=== PATIENT | male | born 1980 | race Caucasian/White ===

== ENCOUNTER 2017-01-12 00:39 | Inpatient (IN) | payer MEDICAID, OTHER ==
[2017-01-12] VITALS (8 sets, daily range): BP systolic 107–143; BP diastolic 54–78; PULSE 56–98; RESP 16–18; TEMP 98.4–100.5; O2SAT 94–99
[~2017-01-12] VITALS: Ht 182.9 cm; Wt 95.7 kg
[~2017-01-12 00:39] MED LIST: BACT800T5 PO; CEPH500C3 PO; CYCL-36 PO; DICL50 PO
[2017-01-12] MEDS ORDERED: SODIUM CHLOR 0.9% 1000 ML INJ 1,000 ML IV SCH ×2 (00:57→03:04)
--- NOTE | 2017-01-12 01:12 | PD ---
HPI Chief Complaint: Skin Problem Time Seen by Provider: 01:00 Travel History International Travel<30 days: No Contact w/Intl Traveler<30days: No Traveled to known affect area: No History of Present Illness HPI This is a 36-year-old male with history of IV drug abuse presents for evaluation of left arm pain. He reports that 1 week ago he injected Dilaudid in the left antecubital region. He reports that he used a very large needle, 10 -gauge, and he thinks that he missed the vein. Since then he's had pain in the proximal left forearm/distal left humerus region. He feels like it is swollen. Pain is an aching pain that is constant. Denies fevers or chills. He also has noted some pimple lesions in both armpits for the past few weeks which have been tender. He has no other complaints at this time. [facility] Past Medical History Diminished Hearing: No Immunizations Current: Yes Pneumonia: Yes Renal Failure: Yes (ACUTE RENAL FAILURE 2009) Past Surgical History Other Surgery: Yes (LEFT HAND SURGERY) Social History Alcohol Use: Yes (RARE) Tobacco Use: Yes (1/2 PPD) Substance Use: Yes (IV DILAUDID, IV HERION) Allergies-Medications (Allergen,Severity, Reaction): Coded Allergies: No Known Allergies (Unverified , 01/12/17) Reported Meds & Prescriptions Reported Meds & Active Scripts Active Review of Systems Except as stated in HPI: all other systems reviewed are Neg Physical Exam Narrative GENERAL: Well-developed well-nourished male in no acute distress SKIN: Warm and dry. Some papular lesions are noted in both axilla consistent with folliculitis. The left forearm reveals some track schneider with no evidence of erythema, induration, fluctuance. HEAD: Atraumatic. Normocephalic. EYES: Pupils equal and round. No scleral icterus. No injection or drainage. ENT: No nasal bleeding or discharge. Mucous membranes pink and moist. NECK: Trachea midline. No JVD. CARDIOVASCULAR: Regular rate and rhythm. No murmur appreciated. RESPIRATORY: No accessory muscle use. Clear to auscultation. Breath sounds equal bilaterally. GASTROINTESTINAL: Abdomen soft, non-tender, nondistended. Hepatic and splenic margins not palpable. MUSCULOSKELETAL: Skin as noted above. The left arm is tender in the distal humerus/proximal forearm region however the compartments of the arm are very soft and there is no obvious deformity. NEUROLOGICAL: Awake and alert. No obvious cranial nerve deficits. Motor grossly within normal limits. Normal speech. Data Data Last Documented VS Vital Signs Date Time Temp Pulse Resp B/P Pulse Ox O2 Delivery O2 Flow Rate FiO2 01/12/17 01:28 100.5 92 18 143/70 99 Room Air Orders Complete Blood Count With Diff (01/12/17 00:57) Comprehensive Metabolic Panel (01/12/17 00:57) Prothrombin Time / Inr (Pt) (01/12/17 00:57) Act Partial Throm Time (Ptt) (01/12/17 00:57) Lactic Acid Sepsis Protocol (01/12/17 00:57) Blood Culture (01/12/17 00:57) Ct Forearm W Iv Contrast (01/12/17 ) Ct Humerus W Iv Contrast (01/12/17 ) Creatine Kinase (Cpk) (01/12/17 00:57) Sodium Chlor 0.9% 1000 Ml Inj (Ns 1000 M (01/12/17 00:57) Iv Access Insert/Monitor (01/12/17 00:57) Vancomycin Inj (Vancomycin Inj) (01/12/17 01:45) Piperacil-Tazo 4.5 Gm Premix (Zosyn 4.5 (01/12/17 01:45) Iohexol 350 Inj (Omnipaque 350 Inj) (01/12/17 02:14) Ketorolac Inj (Toradol Inj) (01/12/17 03:15) Sodium Chlor 0.9% 1000 Ml Inj (Ns 1000 M (01/12/17 03:04) Labs Laboratory Tests Test 01/12/17 01/12/17 01:20 03:05 Prothrombin Time 10.5 SEC Prothromb Time International 1.0 RATIO Ratio Activated Partial 23.6 SEC Thromboplast Time Sodium Level 135 MEQ/L Potassium Level 4.0 MEQ/L Chloride Level 98 MEQ/L Carbon Dioxide Level 27.7 MEQ/L Anion Gap 9 MEQ/L Blood Urea Nitrogen 16 MG/DL Creatinine 1.06 MG/DL Estimat Glomerular Filtration 80 ML/MIN Rate Random Glucose 101 MG/DL Lactic Acid Level 1.1 mmol/L Calcium Level 8.8 MG/DL Total Bilirubin 0.6 MG/DL Aspartate Amino Transf 42 U/L (AST/SGOT) Alanine Aminotransferase 56 U/L (ALT/SGPT) Alkaline Phosphatase 78 U/L Total Creatine Kinase 126 U/L Total Protein 8.3 GM/DL Albumin 3.3 GM/DL White Blood Count 9.9 TH/MM3 Red Blood Count 4.84 MIL/MM3 Hemoglobin 13.8 GM/DL Hematocrit 39.2 % Mean Corpuscular Volume 81.0 FL Mean Corpuscular Hemoglobin 28.4 PG Mean Corpuscular Hemoglobin 35.1 % Concent Red Cell Distribution Width 14.0 % Platelet Count 237 TH/MM3 Mean Platelet Volume 7.7 FL Neutrophils (%) (Auto) 67.7 % Lymphocytes (%) (Auto) 20.8 % Monocytes (%) (Auto) 8.8 % Eosinophils (%) (Auto) 2.2 % Basophils (%) (Auto) 0.5 % Neutrophils # (Auto) 6.7 TH/MM3 Lymphocytes # (Auto) 2.1 TH/MM3 Monocytes # (Auto) 0.9 TH/MM3 Eosinophils # (Auto) 0.2 TH/MM3 Basophils # (Auto) 0.1 TH/MM3 CBC Comment DIFF FINAL Differential Comment MDM Medical Decision Making Medical Screen Exam Complete: Yes Emergency Medical Condition: Yes Medical Record Reviewed: Yes Differential Diagnosis IV infiltration versus cellulitis versus abscess versus compartment syndrome versus myositis versus osteomyelitis Narrative Course 36-year-old male history of IV drug abuse who has been having pain in his left arm ever since using a 10-gauge needle to inject Dilaudid in the left antecubital region one week ago. Physical examination reveals no evidence of cutaneous cellulitis, compartment syndrome or abscess. Given the history and mechanism of injury, CT of the forearm/humerus with IV contrast has been ordered to assess for deep space infection. Plan is for basic lab work, blood cultures. He'll be given IV fluids. Upon reexamination he was actually felt to be febrile with a temperature of 100.5. Therefore broad-spectrum antibiotics have been administered. CT imaging reveals 3.6 x 1.4 x 1.6 cm abscess in the soft tissue musculature of the antecubital region associated with a thrombophlebitis and probable partially occlusive thrombus with surrounding cellulitis. Therefore the patient will be admitted for IV antibiotic therapy, likely surgery consultation. Diagnosis Primary Impression: Cellulitis and abscess of other specified site Additional Impression: IV drug abuse Admitting Information Admitting Physician Requests: Admit Lane Quinny P. PA Jan 12, 2017 01:12
[2017-01-12] MEDS ORDERED: VANCOMYCIN INJ 1,000 MG in SODIUM CHLOR 0.9% 250 ML INJ 250 ML IV ONE (01:45)
[2017-01-12] MEDS ORDERED: PIPERACIL-TAZO 4.5 GM PREMIX 100 ML IV ONE (01:45)
[2017-01-12] MEDS ORDERED: IOHEXOL 350 MG/ML 10 ML VIAL (for RAD DIAG) IV ONE (02:14)
[2017-01-12 02:26] LABS: ALKALINE PHOSPHATASE 78 U/L (45-117); ALT (GPT) 56 U/L (12-78); ANION GAP 9 MEQ/L (5-15); AST (GOT) 42 U/L (15-37); BICARBONATE 27.7 MEQ/L (21.0-32.0); BLOOD UREA NITROGEN 16 MG/DL (7-18); CHLORIDE 98 MEQ/L (98-107); CREATINE KINASE 126 U/L (39-308); GLOMERULAR FILTRATION RATE 80 ML/MIN (>89); SODIUM (NA) 135 MEQ/L (136-145); TOTAL BILIRUBIN ADULT 0.6 MG/DL (0.2-1.0)
[2017-01-12 02:30] LABS: APTT (PATIENT) 23.6 SEC (24.3-30.1); PROTHROMBIN TIME - PATIENT 10.5 SEC (9.8-11.6)
--- NOTE | 2017-01-12 02:47 | RADRPT ---
EXAM DATE/TIME: 01/12/2017 02:06 [facility] COMPARISON: No previous studies available for comparison. INDICATIONS : Left anterior arm swelling; possible abscess. Patient has a history of IV drug abuse. IV CONTRAST: 70 cc Omnipaque 350 (iohexol) IV ; Cumulative dose for multiple exams. RADIATION DOSE: 19.34 CTDIvol (mGy) ; Combined studies MEDICAL HISTORY : IV drug abuse SURGICAL HISTORY : None. ENCOUNTER: Initial ACUITY: 1 day PAIN SCALE: 7/10 LOCATION: Left arm TECHNIQUE: Volumetric scanning of the forearm was performed. Using automated exposure control and adjustment of the mA and/or kV according to patient size, radiation dose was kept as low as reasonably achievable to obtain optimal diagnostic quality images. DICOM format image data is available electronically fo r review and comparison. FINDINGS: There is an enhancing fluid collection in the soft tissue musculature of the antecubital region measu ring about 3.6 x 1.4 x 1.6 cm characteristic of a small abscess. There is probable adjacent partially occlusive superficial thrombophlebitis. There is some surrounding cellulitis. No bony abnormalities. CONCLUSION: 1. 3.6 x 1.4 x 1.6 cm abscess in the soft tissue musculature of the antecubital region associated wit h a thrombophlebitis and probable partially occlusive thrombus with surrounding cellulitis. Marcin Schofield MD on January 12, 2017 at 2:42 Board Certified Radiologist. This report was verified electronically.
--- NOTE | 2017-01-12 02:50 | RADRPT ---
EXAM DATE/TIME: 01/12/2017 02:06 [facility] COMPARISON: No previous studies available for comparison. INDICATIONS : Anterior arm swelling; possible abscess. Patient has a history of IV drug abuse. IV CONTRAST: 70 cc Omnipaque 350 (iohexol) IV ; Cumulative dose for multiple exams. RADIATION DOSE: 19.34 CTDIvol (mGy) ; Combined studies MEDICAL HISTORY : IV drug abuse SURGICAL HISTORY : None. ENCOUNTER: Initial ACUITY: 1 day PAIN SCALE: 7/10 LOCATION: Left arm TECHNIQUE: Volumetric scanning of the humerus was performed. Using automated exposure control and adjustment of the mA and/or kV according to patient size, radiation dose was kept as low as reasonably achievable to obtain optimal diagnostic quality images. DICOM format image data is available electronically for review and comparison. FINDINGS: There is an enhancing fluid collection in the anterior musculature of the antecubital region predomin antly involving the distal biceps measuring up to 4 x 1.3 x 1.2 cm on these images characteristic of an abscess. There is likely an adjacent partially occlusive thrombophlebitis. There is some surroundi ng cellulitis. No acute bony abnormality. CONCLUSION: 1. Small abscess in the antecubital region predominantly involving the distal biceps muscle with aldo urements given above. There is an adjacent partially occlusive thrombophlebitis and surrounding cellu litis. Marcin Schofield MD on January 12, 2017 at 2:46 Board Certified Radiologist. This report was verified electronically.
[2017-01-12] MEDS ORDERED: KETOROLAC TROMETHAMINE 30 MG/ML (IVP) VIAL IV PUSH ONE (03:15)
[2017-01-12 03:29] LABS: AUTOMATED NEUTROPHIL # 6.7 TH/MM3 (1.8-7.7); BASOPHIL # 0.1 TH/MM3 (0-0.2); BASOPHIL % 0.5 % (0.0-2.0); EOSINOPHIL # 0.2 TH/MM3 (0-0.4); EOSINOPHIL % 2.2 % (0.0-4.0); HEMATOCRIT 39.2 % (39.0-51.0); HEMO FLAGS DIFF FINAL; LYMPH % 20.8 % (9.0-44.0); LYMPHOCYTE # 2.1 TH/MM3 (1.0-4.8); MEAN CORPUSCULAR HEMOGLOBIN 28.4 PG (27.0-34.0); MEAN CORPUSCULAR HGB CONC 35.1 % (32.0-36.0); MONO % 8.8 % (0.0-8.0); NEUT % 67.7 % (16.0-70.0); PLATELET COUNT 237 TH/MM3 (150-450); RED BLOOD COUNT 4.84 MIL/MM3 (4.50-5.90); WHITE BLOOD COUNT 9.9 TH/MM3 (4.0-11.0)
[2017-01-12] MEDS ORDERED: ONDANSETRON HCL 4 MG/2 ML VIAL IVP PRN (04:15)
[2017-01-12] MEDS ORDERED: BISACODYL 10 MG SUPP RECTAL PRN (04:15)
[2017-01-12] MEDS ORDERED: ACETAMINOPHEN 325 MG TAB PO PRN (04:15)
[2017-01-12] MEDS ORDERED: MAGNESIUM HYDROXIDE SUSP 30 ML CUP PO PRN (04:15)
[2017-01-12] MEDS ORDERED: SODIUM CHLORIDE 0.9% FLUSH 10 ML FLUSH IV FLUSH PRN (04:15)
[2017-01-12] MEDS ORDERED: Vancomycin Consult Pharmacy 1 EA OTHER SCH (04:15)
[2017-01-12] MEDS ORDERED: SENNOSIDES 8.6 MG TAB PO PRN (04:15)
[2017-01-12] MEDS ORDERED: LACTULOSE SYRUP 20 GM/30 ML CUP PO PRN (04:15)
[2017-01-12] MEDS: SODIUM CHLOR 0.9% 1000 ML INJ 1,000 ML IV SCH ×2 (04:50→06:22)
[2017-01-12] MEDS ORDERED: VANCOMYCIN INJ 900 MG in SODIUM CHLOR 0.9% 250 ML INJ 250 ML IV SCH (05:00)
--- NOTE | 2017-01-12 05:23 | HHI.HP ---
[facility] No Primary Care Physician Admission Diagnosis left arm abscess, cellulitis Diagnoses: (1) Sepsis Diagnosis: Principal (2) Abscess of left arm Diagnosis: Principal (3) IVDU (intravenous drug user) Diagnosis: Principal (4) Dehydration Diagnosis: Principal (5) Tobacco abuse Diagnosis: Principal Travel History International Travel<30 Days: No Contact w/Intl Traveler <30 Da: No Traveled to Known Affected Are: No History of Present Illness This is a 36-year-old male with PMH of Tobacco Abuse and IVDU w/ Dilaudid and Heroin who presented to the ER w/ complaints of left arm pain for approx 1wk. States he injected into left antecubital site w/ large needle approx 1wk ago, reports worsening pain at site since then. Denies fever or chills. On arrival , BP 138/78, HR 98, O2 sat 98% on RA, Temp 100.5. CBC unremarkable. Chemistry essentially unremarkable except for GFR 80. Lactic Acid 1.1. [address] LUE with small abscess in the antecubital region involving distal biceps muscle 4 x 1.3 x 1.2 cm, partially occlusive thrombophlebitis and surrounding cellulitis also noted. S/p Blood Cultures, Vanc/Zosyn in ER. Review of Systems Except as stated in HPI: all other systems reviewed are Neg ROS: 14 point review of systems otherwise negative. Past Family Social History Past Medical History PMH: Tobacco Abuse and IVDU w/ Dilaudid and Heroin Past Surgical History PAST SURGICAL HISTORY: Left Hand Surgery Allergies: Coded Allergies: No Known Allergies (Unverified , 01/12/17) Family History PAST FAMILY HISTORY: Reviewed. No h/o DM or CAD Social History PAST SOCIAL HISTORY: Occasional alcohol. Smokes 1/2ppd. +IVDU w/ Heroin/ Dilaudid Physical Exam Vital Signs Vital Signs Date Time Temp Pulse Resp B/P Pulse Ox O2 Delivery O2 Flow Rate FiO2 01/12/17 04:50 14 01/12/17 03:54 14 01/12/17 03:53 98.7 78 16 136/63 99 Room Air 8/19/17 01:28 100.5 92 18 143/70 99 Room Air 01/12/17 00:42 99.2 98 18 138/78 98 Physical Exam PE: GENERAL: Young male in no acute distress. HEENT: PERRLA, EOMI. No scleral icterus or conjunctival pallor. No lid lag or facial droop. CARDIOVASCULAR: Regular rate and rhythm. No obvious murmurs to auscultation. No chest tenderness to palpation. RESPIRATORY: No obvious rhonchi or wheezing. Clear to auscultation. Breath sounds equal bilaterally. GASTROINTESTINAL: Abdomen soft, non-tender, nondistended. BS normal. MUSCULOSKELETAL: Extremities without clubbing, cyanosis, or edema. No obvious deformities. LUE +track schneider, no erythema/edema. NEUROLOGICAL: Awake, alert and oriented x4. No focal neurologic deficits. Moving both upper and lower extremities spontaneously. Laboratory Laboratory Tests Test 01/12/17 01/12/17 01:20 03:05 Prothrombin Time 10.5 Prothromb Time International 1.0 Ratio Activated Partial 23.6 Thromboplast Time Sodium Level 135 Potassium Level 4.0 Chloride Level 98 Carbon Dioxide Level 27.7 Anion Gap 9 Blood Urea Nitrogen 16 Creatinine 1.06 Estimat Glomerular Filtration 80 Rate Random Glucose 101 Lactic Acid Level 1.1 Calcium Level 8.8 Total Bilirubin 0.6 Aspartate Amino Transf 42 (AST/SGOT) Alanine Aminotransferase 56 (ALT/SGPT) Alkaline Phosphatase 78 Total Creatine Kinase 126 Total Protein 8.3 Albumin 3.3 White Blood Count 9.9 Red Blood Count 4.84 Hemoglobin 13.8 Hematocrit 39.2 Mean Corpuscular Volume 81.0 Mean Corpuscular Hemoglobin 28.4 Mean Corpuscular Hemoglobin 35.1 Concent Red Cell Distribution Width 14.0 Platelet Count 237 Mean Platelet Volume 7.7 Neutrophils (%) (Auto) 67.7 Lymphocytes (%) (Auto) 20.8 Monocytes (%) (Auto) 8.8 Eosinophils (%) (Auto) 2.2 Basophils (%) (Auto) 0.5 Neutrophils # (Auto) 6.7 Lymphocytes # (Auto) 2.1 Monocytes # (Auto) 0.9 Eosinophils # (Auto) 0.2 Basophils # (Auto) 0.1 CBC Comment DIFF FINAL Differential Comment Date/Time Procedure Status Source Growth 01/12/17 01:30 Aerobic Blood Culture Received Blood Peripheral Pending 01/12/17 01:30 Anaerobic Blood Culture Received Blood Peripheral Pending Result Diagram: 01/12/17 0305 01/12/17 0120 Assessment and Plan Problem List: (1) Sepsis ICD Code: A41.9 Status: Acute (2) Abscess of left arm ICD Code: L02.414 Status: Acute (3) Dehydration ICD Code: E86.0 Status: Acute (4) IVDU (intravenous drug user) ICD Code: F19.90 Status: Acute (5) Tobacco abuse ICD Code: Z72.0 Status: Acute Assessment and Plan A/P: 1. Sepsis: Temp 100.5, HR 92, Source-LUE Abscess. S/p Blood Cultures, IV Vanc /Zosyn in ER. Follow up cultures, continue IV Abx. 2. LUE Abscess: c/o pain in left antecubital region at site of recent IVDU, CT LUE w/ 3.6 x 1.4 x 1.6 abscess soft tissue musculature of antecubital region associated with thrombophlebitis and partially occlusive thrombus with surrounding cellulitis, images reviewed by me. Continue w/ IV Abx as above. Consult Gen Sx as deep tissue abscess involving musculature. 3. Dehydration: GFR 80, BUN/Creatinine normal. IVF for hydration, the labs in a.m. 4. IVDU: w/ Dilaudid/Heroin, ongoing. Ativan prn if needed for withdrawal. 5. Tobacco Abuse: Pt counselled. Ativan/NicoDerm prn if needed. 6. DVT Prophylaxis: Heparin sq 7. Social work for d/c planning as needed. 8. Case discussed w/ ER physician at length. Physician Certification 2 Midnight Certification Type: Admission for Inpatient Services Order for Inpatient Services The services are ordered in accordance with Medicare regulations or non- Medicare payer requirements, as applicable. In the case of services not specified as inpatient-only, they are appropriately provided as inpatient services in accordance with the 2-midnight benchmark. Estimated LOS (days): 2 days is the estimated time the patient will need to remain in the hospital, assuming treatment plan goals are met and no additional complications. Post-Hospital Plan: Not yet determined Arin Best MD Jan 12, 2017 05:22
[2017-01-12] MEDS: CEFEPIME INJ 1,000 MG in SODIUM CHLORIDE 0.9% INJ 100 ML IV SCH ×2 (08:19→21:39)
[2017-01-12] MEDS: MORPHINE SULFATE 4 MG/ML INJ IV PRN ×3 (08:28→18:40)
[2017-01-12] MEDS: SODIUM CHLORIDE 0.9% FLUSH 10 ML FLUSH IV FLUSH SCH ×2 (08:30→21:00)
[2017-01-12] MEDS ORDERED: LIDOCAINE HCL 1% 50 ML VIAL ONE (09:45)
[2017-01-12] MEDS ORDERED: fentaNYL CITRATE 250 MCG/5 ML AMP ONE (09:51)
[2017-01-12] MEDS ORDERED: DO NOT ADM ANY ANTICOAGULANT DRUGS PRN (10:45)
--- NOTE | 2017-01-12 10:53 | HHI.PR ---
cc: Enrique Cleary MD Immediate Post Op Note Procedure Date: Jan 12, 2017 Pre Op Diagnosis: Left arm abscess Post Op Diagnosis: Same Surgeon: Enrique Cleary Damaged Freight Inspector(s): Danisha Cárdenas CFA Procedure: Incision and drainage Left arm abscess Complications: None Specimen(s) removed: Gram stain, C&S to microbiology Estimated blood loss: Minimal Anesthesia: LMA Drains: None IVF (800 ml) Patient to: PACU Patient Condition: Good Date/Time of Procedure: SEE SURGICAL CARE RECORD Enrique Cleary MD Jan 12, 2017 10:53
[2017-01-12] MEDS ORDERED: *morphine SULFATE 8 MG/ML PERIprocedure ONLY ONE (11:15)
[2017-01-12] MEDS: DOCUSATE SODIUM 50 MG/SENNA 8.6 MG TAB PO SCH ×2 (11:55→21:39)
[2017-01-12] MEDS: HEPARIN SODIUM - SQ 10,000 UNITS/ML VIAL SQ SCH ×2 (11:56→21:00)
[2017-01-12] MEDS ORDERED: LACTATED RINGER'S 1000 ML INJ 1,000 ML IV ONE (12:00)
[2017-01-12] MEDS ORDERED: PROPOFOL 200 MG/20 ML AMP IV ONE (12:00)
--- NOTE | 2017-01-12 12:21 | MB ---
cc: DANIEL SILVER M.D. DATE OF CONSULTATION: 01/12/2017. REASON FOR CONSULTATION: Left arm abscess. HISTORY OF PRESENT ILLNESS: The patient is a 36-year-old male with a history of tobacco abuse and IV drug use who presented with complaints of left arm pain for about one week. He injected into the left antecubital site with a large needle about one week ago. The patient was noted to have on CT a small abscess involving the distal biceps muscle 4.0 x 1.3 x 1.2 and a partially occlusive thrombophlebitis and surrounding cellulitis. The patient has had blood cultures and is receiving vancomycin and Zosyn. WBCs are 9.9. Platelets are 237,000. CURRENT MEDICATIONS: Methadone. ALLERGIES: HE HAS NO KNOWN ALLERGIES. PAST SURGICAL HISTORY: He has had left hand surgery in the past. SOCIAL HISTORY: He smokes one-half pack per day. He does admit to using heroin and Dilaudid intravenously. PHYSICAL EXAMINATION: GENERAL: The physical exam reveals a male in no acute distress. VITAL SIGNS: Blood pressure is 113/57, pulse 60, respirations 18, temperature 98.7 and 94% saturation on room air. HEAD, EYES, EARS, NOSE, THROAT: The sclerae are nonicteric. CHEST: Clear to auscultation. CARDIAC: Regular rate and rhythm without a murmur. ABDOMEN: Soft. EXTREMITIES: Normal pulses throughout. There are needle tracks on the left upper arm. There is an area of fluctuance proximal to the antecubital fossa. There is also some thickening of the antecubital vein that is hard and a small pocket of fluctuance just distal to this as well. There are no other masses or lesions noted. ASSESSMENT: Abscess left upper arm extending to the antecubital fossa. PLAN: Incision and drainage with cultures. I have discussed the risks of surgery with the patient including but not limited to bleeding, infection, risk of endocarditis and valve infection with possible as well as a need for reoperation. We discussed attempting to change his lifestyle as well as this will only become worse if he continues to inject his peripheral venous system. He will be taken to the operating room today. MD MYA Morelos/[place] /10:55 AM /12:10 PM
[2017-01-12] MEDS: VANCOMYCIN 1,500 MG/NS 500 ML IV SCH ×2 (18:11)
[2017-01-12] MEDS ORDERED: NICOTINE 21 MG/24 HR PATCH T-DERMAL ONE (19:00)
[2017-01-12] MEDS ORDERED: METH10TA PO (19:39)
[2017-01-12] MEDS: METHADONE HCL 10 MG TAB PO SCH (21:53)
[2017-01-12] MEDS: LORazepam 2 MG/ML VIAL IV PUSH PRN (21:53)
[2017-01-13] VITALS (7 sets, daily range): BP systolic 118–137; BP diastolic 58–76; PULSE 52–100; RESP 17–18; TEMP 97.6–99.7; O2SAT 94–99
[2017-01-13] MEDS: SODIUM CHLOR 0.9% 1000 ML INJ 1,000 ML IV SCH (00:02)
[2017-01-13] MEDS ORDERED: MORPHINE SULFATE 4 MG/ML INJ IV PUSH ONE (04:45)
[2017-01-13 04:58] LABS: AUTOMATED NEUTROPHIL # 4.4 TH/MM3 (1.8-7.7); BASOPHIL # 0.1 TH/MM3 (0-0.2); BASOPHIL % 0.7 % (0.0-2.0); EOSINOPHIL # 0.4 TH/MM3 (0-0.4); EOSINOPHIL % 4.9 % (0.0-4.0); HEMATOCRIT 40.1 % (39.0-51.0); HEMO FLAGS DIFF FINAL; LYMPH % 29.1 % (9.0-44.0); LYMPHOCYTE # 2.3 TH/MM3 (1.0-4.8); MEAN CELL VOLUME 83.3 FL (80.0-100.0); MEAN CORPUSCULAR HEMOGLOBIN 27.5 PG (27.0-34.0); MONO % 10.1 % (0.0-8.0); NEUT % 55.2 % (16.0-70.0); PLATELET COUNT 225 TH/MM3 (150-450); RED BLOOD COUNT 4.81 MIL/MM3 (4.50-5.90); RED CELL DISTRIBUTION WIDTH 14.1 % (11.6-17.2)
[2017-01-13 05:24] LABS: ALKALINE PHOSPHATASE 75 U/L (45-117); ALT (GPT) 45 U/L (12-78); ANION GAP 6 MEQ/L (5-15); AST (GOT) 34 U/L (15-37); BLOOD UREA NITROGEN 14 MG/DL (7-18); CHLORIDE 104 MEQ/L (98-107); GLOMERULAR FILTRATION RATE 108 ML/MIN (>89); POTASSIUM 4.4 MEQ/L (3.5-5.1); SODIUM (NA) 135 MEQ/L (136-145); TOTAL BILIRUBIN ADULT 0.3 MG/DL (0.2-1.0)
[2017-01-13] MEDS: METHADONE HCL 10 MG TAB PO SCH ×5 (05:39→21:40)
[2017-01-13] MEDS: VANCOMYCIN 1,500 MG/NS 500 ML IV SCH ×4 (05:39→18:34)
--- NOTE | 2017-01-13 06:42 | MP ---
cc: ENRIQUE CLEARY M.D. DATE OF SURGERY: 01/12/2017 PROCEDURE Incision and drainage left arm. PREOPERATIVE DIAGNOSIS Left arm abscess. POSTOPERATIVE DIAGNOSIS Left arm abscess. ANESTHESIA LMA. SURGEON Arron Cleary MD ESTIMATED BLOOD LOSS Minimal. FLUIDS: 800 mL Crystalloid COMPLICATIONS: None. DRAINS: None. SPECIMEN: C&S, Gram stain to microbiology. PROCEDURE IN DETAIL The patient was seen in the post anesthesia care area and the left arm marked with the patient indicating the areas where there was fluctuance. These were confirmed after the undersigned marked the arm and initialed it. The patient was taken to the operating room, placed on the operating table in the supine position. After an adequate level of laryngeal mask anesthesia was instituted the left arm was prepped and draped in the field. Time-out was taken confirming the correct patient site and procedure to be performed. Two transverse incisions were made directly over the fluctuant areas. A hemostat was used to dissect down to the areas of fluid. Small amount of cloudy fluid was removed but no purulent material. When this had been completed hemostasis was achieved with electrocautery. The wounds were packed with 1-inch iodoform packing. The wounds tracked down the forearm slightly and up into the upper arm. The wound was then wrapped with Bhavesh. The patient was extubated and taken back to the recovery room in stable condition. He tolerated the procedure well. Sponge, needle and instrument counts were reported be correct. Enrique Cleary MD [facility]/[place] /8:26 PM /6:35 AM
[2017-01-13] MEDS: DOCUSATE SODIUM 50 MG/SENNA 8.6 MG TAB PO SCH ×2 (07:55→20:38)
[2017-01-13] MEDS: CEFEPIME INJ 1,000 MG in SODIUM CHLORIDE 0.9% INJ 100 ML IV SCH ×2 (07:56→20:41)
[2017-01-13] MEDS: NICOTINE 21 MG/24 HR PATCH T-DERMAL SCH (07:56)
[2017-01-13] MEDS: SODIUM CHLORIDE 0.9% FLUSH 10 ML FLUSH IV FLUSH SCH ×2 (07:56→20:47)
[2017-01-13] MEDS: HEPARIN SODIUM - SQ 10,000 UNITS/ML VIAL SQ SCH ×2 (07:57→20:39)
[2017-01-13] MEDS: REMOVE OLD PATCH T-DERMAL SCH (07:59)
[2017-01-13] MEDS: MORPHINE SULFATE 4 MG/ML INJ IV PRN ×3 (11:45→20:41)
--- NOTE | 2017-01-13 14:39 | HHI.PR ---
Subjective Subjective Notes DAILY PROGRESS NOTE FOR SURGICAL ATTENDING, DR. JANIS CROWLEY Patient doing well Appears comfortable Objective Vitals/I&O Vital Signs Date Time Temp Pulse Resp B/P (MAP) Pulse Ox O2 Delivery O2 Flow Rate FiO2 01/13/17 12:00 99.7 93 18 118/58 (78) 96 01/12/17 20:12 21 01/12/17 11:15 Room Air 01/12/17 11:00 2 Labs Laboratory Tests Test 01/13/17 04:16 White Blood Count 8.0 Red Blood Count 4.81 Hemoglobin 13.2 Hematocrit 40.1 Mean Corpuscular Volume 83.3 Mean Corpuscular Hemoglobin 27.5 Mean Corpuscular Hemoglobin Concent 33.0 Red Cell Distribution Width 14.1 Platelet Count 225 Mean Platelet Volume 7.6 Neutrophils (%) (Auto) 55.2 Lymphocytes (%) (Auto) 29.1 Monocytes (%) (Auto) 10.1 Eosinophils (%) (Auto) 4.9 Basophils (%) (Auto) 0.7 Neutrophils # (Auto) 4.4 Lymphocytes # (Auto) 2.3 Monocytes # (Auto) 0.8 Eosinophils # (Auto) 0.4 Basophils # (Auto) 0.1 CBC Comment DIFF FINAL Differential Comment Blood Urea Nitrogen 14 Creatinine 0.82 Random Glucose 105 Total Protein 6.6 Albumin 2.4 Calcium Level 8.2 Alkaline Phosphatase 75 Aspartate Amino Transf (AST/SGOT) 34 Alanine Aminotransferase (ALT/SGPT) 45 Total Bilirubin 0.3 Sodium Level 135 Potassium Level 4.4 Chloride Level 104 Carbon Dioxide Level 25.0 Anion Gap 6 Estimat Glomerular Filtration Rate 108 Date/Time Source Procedure Growth Status 01/12/17 01:30 Blood Peripheral Aerobic Blood Culture - Preliminary NO GROWTH IN 1 DAY Resulted 01/12/17 01:30 Blood Peripheral Anaerobic Blood Culture - Preliminary NO GROWTH IN 1 DAY Resulted 01/12/17 10:33 Abscess Arm Fungal Smear Pending Received 01/12/17 10:33 Abscess Arm Fungal Culture Pending Received Radiology Last Impressions Upper Extremity CT 01/12/17 0000 Signed Impressions: Service Date/Time: Saturday, January 12, 2017 02:06 - CONCLUSION: 1. Small abscess in the antecubital region predominantly involving the distal biceps muscle with measurements given above. There is an adjacent partially occlusive thrombophlebitis and surrounding cellulitis. Janis Schofield MD Extremities: Perfused, Other (patient arm bandaged mild edema) A/P Problem List: (1) Status post incision and drainage ICD Codes: Z98.890 - Other specified postprocedural states Status: Acute Permanent Comment: Drainage left antecubital abscess by Dr. Cleary Last Edited By: Janis Crowley on Jan 13, 2017 14:38 (2) Cellulitis and abscess of other specified site ICD Codes: L03.818 - Cellulitis of other sites; L02.818 - Cutaneous abscess of other sites Status: Acute (3) IV drug abuse ICD Codes: F19.10 - Other psychoactive substance abuse, uncomplicated Status: Acute (4) Dehydration ICD Codes: E86.0 - Dehydration Status: Acute (5) Sepsis ICD Codes: A41.9 - Sepsis, unspecified organism Status: Acute (6) Abscess of left arm ICD Codes: L02.414 - Cutaneous abscess of left upper limb Status: Acute (7) IVDU (intravenous drug user) ICD Codes: F19.90 - Other psychoactive substance use, unspecified, uncomplicated Status: Acute (8) Tobacco abuse ICD Codes: Z72.0 - Tobacco use Status: Acute Janis Crowley MD Jan 13, 2017 14:39
[2017-01-13] MEDS ORDERED: POLYETHYLENE GLYCOL 17 GM PKG PO PRN (15:15)
--- NOTE | 2017-01-13 15:20 | HHI.PR ---
Objective Vital Signs Date Time Temp Pulse Resp B/P (MAP) Pulse Ox O2 Delivery O2 Flow Rate FiO2 01/13/17 12:00 99.7 93 18 118/58 (78) 96 01/13/17 08:00 99.3 100 18 118/58 (78) 96 01/13/17 04:23 52 01/13/17 04:00 99.4 76 18 135/76 (95) 98 01/12/17 20:12 21 01/12/17 20:00 98.6 64 18 126/64 (84) 97 01/12/17 16:00 98.5 60 17 107/57 (74) 96 I/O 01/12/17 01/12/17 01/12/17 01/13/17 01/13/17 01/13/17 07:00 15:00 23:00 07:00 15:00 23:00 Intake Total 1095 ml 420 ml 1860 ml Output Total 10 ml 600 ml Balance 1085 ml 420 ml 1260 ml Intake Oral 420 ml 660 ml IV Total 295 ml 1200 ml Other 800 ml Output Urine Total 600 ml Estimated Blood Loss 10 ml # Voids 0 5 Result Diagram: 01/13/17 0416 01/13/17 0416 A/P Problem List: (1) Sepsis ICD Code: A41.9 - Sepsis, unspecified organism Status: Acute (2) Abscess of left arm ICD Code: L02.414 - Cutaneous abscess of left upper limb Status: Acute (3) Cellulitis and abscess of other specified site ICD Code: L03.818 - Cellulitis of other sites; L02.818 - Cutaneous abscess of other sites Status: Acute (4) IV drug abuse ICD Code: F19.10 - Other psychoactive substance abuse, uncomplicated Status: Acute (5) Dehydration ICD Code: E86.0 - Dehydration Status: Acute (6) Tobacco abuse ICD Code: Z72.0 - Tobacco use Status: Acute (7) Status post incision and drainage ICD Code: Z98.890 - Other specified postprocedural states Status: Acute Permanent Comment: Drainage left antecubital abscess by Dr. Cleary Last Edited By: Marcin Crowley on Jan 13, 2017 14:38 (8) IVDU (intravenous drug user) ICD Code: F19.90 - Other psychoactive substance use, unspecified, uncomplicated Status: Acute Assessment and Plan Assessment and Plan Status post I&D left arm. Sepsis is improved. The shunt is trying to negotiate for an increase in his pain medications. I informed him that at discharge she will discharged on his regular methadone which could be augmented with NSAIDs or Tylenol, but given his history and predisposition for IV opioid abuse he will not be discharged with short acting narcotics from me. Sepsis Resolved Left upper extremity abscess History of IV drug abuse Surgery following Status post I&D IV vancomycin and Zosyn Follow cultures Patient counseled to quit IV drug abuse Dehydration Resolved Stop IV fluids Nicotine dependence Patient has been counseled to quit Continue NicoDerm and as needed DVT prophylaxis Heparin Discharge planning Possible discharge in 1-2 days. Patient will need completion of any further I&D , if needed, prior to discharge. Danielito Ornelas MD Jan 13, 2017 15:20
[2017-01-13] MEDS ORDERED: MORPHINE SULFATE 4 MG/ML INJ IV PRN (15:30)
[2017-01-13] MEDS: NAPROXEN 500 MG TAB PO SCH (20:37)
[2017-01-13] MEDS: DOCUSATE SODIUM 100 MG CAP PO SCH (20:38)
[2017-01-13] MEDS: LORazepam 2 MG/ML VIAL IV PUSH PRN (21:48)
[2017-01-13] MEDS ORDERED: TEMAZEPAM 7.5 MG CAP PO ONE (22:45)
[2017-01-14] MEDS: MORPHINE SULFATE 4 MG/ML INJ IV PRN ×2 (00:43→05:03)
[2017-01-14 01:03] VITALS: BP 119/58; PULSE 80; RESP 17; TEMP 98.2; O2SAT 99
[2017-01-14 04:30] VITALS: BP 132/71; PULSE 76; RESP 17; TEMP 97.6; O2SAT 99
[2017-01-14] MEDS: METHADONE HCL 10 MG TAB PO SCH ×5 (05:02→21:11)
[2017-01-14] MEDS ORDERED: PHARMACY ORDERED LAB ONE (05:45)
[2017-01-14] MEDS: VANCOMYCIN 1,500 MG/NS 500 ML IV SCH ×6 (06:53→22:41)
[2017-01-14 07:16] LABS: AUTOMATED NEUTROPHIL # 5.9 TH/MM3 (1.8-7.7); BASOPHIL % 0.3 % (0.0-2.0); EOSINOPHIL # 0.2 TH/MM3 (0-0.4); EOSINOPHIL % 2.5 % (0.0-4.0); HEMATOCRIT 37.3 % (39.0-51.0); HEMO FLAGS DIFF FINAL; LYMPH % 24.3 % (9.0-44.0); LYMPHOCYTE # 2.3 TH/MM3 (1.0-4.8); MEAN CELL VOLUME 81.9 FL (80.0-100.0); MEAN CORPUSCULAR HEMOGLOBIN 27.7 PG (27.0-34.0); MEAN CORPUSCULAR HGB CONC 33.8 % (32.0-36.0); MONO % 11.1 % (0.0-8.0); NEUT % 61.8 % (16.0-70.0); PLATELET COUNT 253 TH/MM3 (150-450); RED BLOOD COUNT 4.55 MIL/MM3 (4.50-5.90); RED CELL DISTRIBUTION WIDTH 13.7 % (11.6-17.2); WHITE BLOOD COUNT 9.5 TH/MM3 (4.0-11.0)
[2017-01-14 07:31] LABS: ANION GAP 7 MEQ/L (5-15); AST (GOT) 35 U/L (15-37); BICARBONATE 30.1 MEQ/L (21.0-32.0); BLOOD UREA NITROGEN 13 MG/DL (7-18); CHLORIDE 102 MEQ/L (98-107); GLOMERULAR FILTRATION RATE 98 ML/MIN (>89); POTASSIUM 3.7 MEQ/L (3.5-5.1); SODIUM (NA) 139 MEQ/L (136-145)
[2017-01-14 07:40] LABS: ALKALINE PHOSPHATASE 66 U/L (45-117); ALT (GPT) 51 U/L (12-78); TOTAL BILIRUBIN ADULT 0.5 MG/DL (0.2-1.0)
[2017-01-14 09:01] VITALS: BP 139/63; PULSE 91; RESP 20; TEMP 98.4; O2SAT 96
[2017-01-14] MEDS: NAPROXEN 500 MG TAB PO SCH ×2 (09:54→21:12)
[2017-01-14] MEDS: SODIUM CHLORIDE 0.9% FLUSH 10 ML FLUSH IV FLUSH SCH ×2 (09:55→21:10)
[2017-01-14] MEDS: NICOTINE 21 MG/24 HR PATCH T-DERMAL SCH (09:55)
[2017-01-14] MEDS: REMOVE OLD PATCH T-DERMAL SCH (09:55)
[2017-01-14] MEDS: HEPARIN SODIUM - SQ 10,000 UNITS/ML VIAL SQ SCH ×2 (09:55→21:00)
[2017-01-14] MEDS: CEFEPIME INJ 1,000 MG in SODIUM CHLORIDE 0.9% INJ 100 ML IV SCH ×2 (09:55→21:10)
[2017-01-14] MEDS: DOCUSATE SODIUM 100 MG CAP PO SCH ×2 (09:56→21:10)
[2017-01-14] MEDS: DOCUSATE SODIUM 50 MG/SENNA 8.6 MG TAB PO SCH ×2 (09:56→21:10)
[2017-01-14 13:08] VITALS: BP 126/72; PULSE 91; RESP 20; TEMP 98.3; O2SAT 94
--- NOTE | 2017-01-14 14:05 | HHI.PR ---
Subjective Subjective Notes Upon arrival to the room KAYDEN Olmedo and Nurse Insurance Checker David at bedside--- discussion with patient about pain medications Hugo upset about not being able to receive IV morphine Dr. Ornelas came to room and discussed pain medication regimen Patient agrees to have dressing changed ---I offered to come back in a little while after PO pain medications given but he insists to do it at this time Objective Vitals/I&O Vital Signs Date Time Temp Pulse Resp B/P (MAP) Pulse Ox O2 Delivery O2 Flow Rate FiO2 01/14/17 13:08 98.3 91 20 126/72 (90) 94 01/12/17 20:12 21 01/12/17 11:15 Room Air 01/12/17 11:00 2 Labs Laboratory Tests Test 01/14/17 06:50 White Blood Count 9.5 Red Blood Count 4.55 Hemoglobin 12.6 Hematocrit 37.3 Mean Corpuscular Volume 81.9 Mean Corpuscular Hemoglobin 27.7 Mean Corpuscular Hemoglobin Concent 33.8 Red Cell Distribution Width 13.7 Platelet Count 253 Mean Platelet Volume 7.8 Neutrophils (%) (Auto) 61.8 Lymphocytes (%) (Auto) 24.3 Monocytes (%) (Auto) 11.1 Eosinophils (%) (Auto) 2.5 Basophils (%) (Auto) 0.3 Neutrophils # (Auto) 5.9 Lymphocytes # (Auto) 2.3 Monocytes # (Auto) 1.1 Eosinophils # (Auto) 0.2 Basophils # (Auto) 0.0 CBC Comment DIFF FINAL Differential Comment Blood Urea Nitrogen 13 Creatinine 0.89 Random Glucose 104 Total Protein 7.2 Albumin 2.9 Calcium Level 9.0 Alkaline Phosphatase 66 Aspartate Amino Transf (AST/SGOT) 35 Alanine Aminotransferase (ALT/SGPT) 51 Total Bilirubin 0.5 Sodium Level 139 Potassium Level 3.7 Chloride Level 102 Carbon Dioxide Level 30.1 Anion Gap 7 Estimat Glomerular Filtration Rate 98 Vancomycin Level Trough 1.3 Date/Time Source Procedure Growth Status 01/12/17 01:30 Blood Peripheral Aerobic Blood Culture - Preliminary NO GROWTH IN 2 DAYS Resulted 01/12/17 01:30 Blood Peripheral Anaerobic Blood Culture - Preliminary NO GROWTH IN 2 DAYS Resulted 01/12/17 10:33 Abscess Arm Fungal Smear Pending Received 01/12/17 10:33 Abscess Arm Fungal Culture Pending Received Radiology Last Impressions Upper Extremity CT 01/12/17 0000 Signed Impressions: Service Date/Time: Thursday, January 12, 2017 02:06 - CONCLUSION: 1. Small abscess in the antecubital region predominantly involving the distal biceps muscle with measurements given above. There is an adjacent partially occlusive thrombophlebitis and surrounding cellulitis. Marcin Schofield MD Cardiovascular: Regular Lungs: Clear Abdomen: Non-distended, Non-tender Extremities: Other (see below ) Narrative Exam LEFT arm ----two abscess cavities---one superior and one inferior to AC---- outer dressing removed and packing removed from both cavities--- moderate amount of purulent drainage---re---packed with 1/4 in iodoform packing; ABD cover and secured with gauze wrap A/P Problem List: (1) Status post incision and drainage ICD Codes: Z98.890 - Other specified postprocedural states Status: Acute Permanent Comment: Drainage left antecubital abscess by Dr. Cleary Last Edited By: Marcin Crowley on Jan 13, 2017 14:38 (2) Cellulitis and abscess of other specified site ICD Codes: L03.818 - Cellulitis of other sites; L02.818 - Cutaneous abscess of other sites Status: Acute (3) IV drug abuse ICD Codes: F19.10 - Other psychoactive substance abuse, uncomplicated Status: Acute (4) Dehydration ICD Codes: E86.0 - Dehydration Status: Acute (5) Sepsis ICD Codes: A41.9 - Sepsis, unspecified organism Status: Acute (6) Abscess of left arm ICD Codes: L02.414 - Cutaneous abscess of left upper limb Status: Acute (7) IVDU (intravenous drug user) ICD Codes: F19.90 - Other psychoactive substance use, unspecified, uncomplicated Status: Acute (8) Tobacco abuse ICD Codes: Z72.0 - Tobacco use Status: Acute Assessment and Plan 36 year old male IVDA with LEFT forearm abscess -Dressing change complete---I will remove packing tomorrow and evaluation dressing -Okay to change outer dressing but leave packing in place -Pain control -I have requested the patient apologize to KAYDEN Olmedo as she is here to help him -I also discussed with Nurse Insurance Checker David Attending Note - Dr. Cleray wound with minimal drainage on bandage. The exam, history, and the medical decision-making described in the above note were completed with the assistance of the mid-level provider. I reviewed and agree with the findings presented. I attest that I had a [id number] encounter with the patient on the same day, and personally performed and documented my assessment and findings in the medical record. Jazmine Godwin Jan 14, 2017 14:05 Enrique Cleary MD Jan 28, 2017 17:22
[2017-01-14 16:35] VITALS: BP 119/59; PULSE 76; RESP 20; TEMP 98.1; O2SAT 95
[2017-01-14 20:00] VITALS: BP 121/56; PULSE 81; RESP 18; TEMP 98.4; O2SAT 94
[2017-01-15] VITALS: BP 123/58; PULSE 78; RESP 18; TEMP 98.6; O2SAT 74
[2017-01-15] MEDS: SODIUM CHLORIDE 0.9% FLUSH 10 ML FLUSH IV FLUSH SCH ×3 (01:24→20:30)
[2017-01-15 04:00] VITALS: BP 158/69; PULSE 83; RESP 20; TEMP 98.5; O2SAT 94
[2017-01-15] MEDS: VANCOMYCIN 1,500 MG/NS 500 ML IV SCH ×4 (05:51→14:09)
[2017-01-15 06:37] LABS: VANCOMYCIN TROUGH 15.7 MCG/ML (5.0-10.0)
[2017-01-15] MEDS: METHADONE HCL 10 MG TAB PO SCH ×5 (06:44→20:14)
[2017-01-15] MEDS ORDERED: PHARMACY ORDERED LAB ONE (06:45)
--- NOTE | 2017-01-15 07:59 | HHI.PR ---
Subjective Remarks This note is intended for documentation of a visit which occurred on 01-14-17 and is written on 01-15-17. Patient reports poor pain control. He is requesting narcotic dosing beyond the pain gradient which would be expected for abscess/cellulitis. Wounds are healing well. Objective Vital Signs Date Time Temp Pulse Resp B/P (MAP) Pulse Ox O2 Delivery O2 Flow Rate FiO2 01/15/17 04:00 98.5 83 20 158/69 (98) 94 01/15/17 00:00 98.6 78 18 123/58 (79) 74 01/14/17 20:00 98.4 81 18 121/56 (77) 94 01/14/17 16:35 98.1 76 20 119/59 (79) 95 01/14/17 13:08 98.3 91 20 126/72 (90) 94 01/14/17 09:01 98.4 91 20 139/63 (88) 96 I/O 01/14/17 01/14/17 01/14/17 01/15/17 01/15/17 01/15/17 06:59 14:59 22:59 06:59 14:59 22:59 Intake Total 600 ml 200 ml 236 ml Balance 600 ml 200 ml 236 ml Intake Oral 600 ml 236 ml IV Total 200 ml # Voids 6 # Bowel Movements 1 Result Diagram: 01/14/17 0650 01/15/17 0600 Objective Remarks GENERAL: NAD, A&Ox3 HEAD: Normocephalic. NECK: Supple, trachea midline. No lymphadenopathy. EYES: No scleral icterus. No injection or drainage. CARDIOVASCULAR: Regular rate and rhythm without murmurs, gallops, or rubs. RESPIRATORY: Breath sounds equal bilaterally. No accessory muscle use. GASTROINTESTINAL: Abdomen soft, non-tender, nondistended. MUSCULOSKELETAL: No cyanosis, or edema. SKIN: Warm and dry. Left forearm has a 2 cm laceration from I&D approximately, his left arm has a 4 cm laceration with a 1 cm deep laceration distally from I& D. NEURO: No focal neurological deficitis. A/P Problem List: (1) Sepsis ICD Code: A41.9 - Sepsis, unspecified organism Status: Acute (2) Abscess of left arm ICD Code: L02.414 - Cutaneous abscess of left upper limb Status: Acute (3) Cellulitis and abscess of other specified site ICD Code: L03.818 - Cellulitis of other sites; L02.818 - Cutaneous abscess of other sites Status: Acute (4) IV drug abuse ICD Code: F19.10 - Other psychoactive substance abuse, uncomplicated Status: Acute (5) Dehydration ICD Code: E86.0 - Dehydration Status: Acute (6) Tobacco abuse ICD Code: Z72.0 - Tobacco use Status: Acute (7) Status post incision and drainage ICD Code: Z98.890 - Other specified postprocedural states Status: Acute Permanent Comment: Drainage left antecubital abscess by Dr. Cleary Last Edited By: Marcin Crowley on Jan 13, 2017 14:38 (8) IVDU (intravenous drug user) ICD Code: F19.90 - Other psychoactive substance use, unspecified, uncomplicated Status: Acute Assessment and Plan Assessment and Plan Status post I&D left arm. Sepsis is improved. The shunt is trying to negotiate for an increase in his pain medications. Narcotics adjusted. Morphine sulfate discontinued and oxycodone 10 mg provided for higher pain scale. Sepsis Resolved Left upper extremity abscess History of IV drug abuse Surgery following Status post I&D IV vancomycin and Zosyn Follow cultures Patient counseled to quit IV drug abuse Dehydration Resolved Stop IV fluids Nicotine dependence Patient has been counseled to quit Continue NicoDerm and as needed DVT prophylaxis Heparin Discharge planning Possible discharge in 1-2 days. Patient will need completion of any further I&D , if needed, prior to discharge. Danielito Ornelas MD Jan 15, 2017 07:59
[2017-01-15 08:00] VITALS: BP 131/74; PULSE 71; RESP 16; TEMP 99; O2SAT 94
[2017-01-15] MEDS: NAPROXEN 500 MG TAB PO SCH ×2 (09:29→20:30)
[2017-01-15] MEDS: CEFEPIME INJ 1,000 MG in SODIUM CHLORIDE 0.9% INJ 100 ML IV SCH ×2 (09:29→20:30)
[2017-01-15] MEDS: REMOVE OLD PATCH T-DERMAL SCH (09:30)
[2017-01-15] MEDS: DOCUSATE SODIUM 50 MG/SENNA 8.6 MG TAB PO SCH ×2 (09:30→20:30)
[2017-01-15] MEDS: NICOTINE 21 MG/24 HR PATCH T-DERMAL SCH (09:30)
[2017-01-15] MEDS: DOCUSATE SODIUM 100 MG CAP PO SCH ×2 (09:30→20:30)
[2017-01-15] MEDS: HEPARIN SODIUM - SQ 10,000 UNITS/ML VIAL SQ SCH ×2 (09:31→20:30)
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
--- NOTE | 2017-01-15 11:27 | HHI.PR ---
Subjective Subjective Notes Resting in bed No issues overnight Pain controlled Objective Vitals/I&O Vital Signs Date Time Temp Pulse Resp B/P (MAP) Pulse Ox O2 Delivery O2 Flow Rate FiO2 01/15/17 08:00 99.0 71 16 131/74 (93) 94 01/12/17 20:12 21 01/12/17 11:15 Room Air 01/12/17 11:00 2 Labs Laboratory Tests Test 01/15/17 06:00 Creatinine 0.86 Estimat Glomerular Filtration Rate 102 Vancomycin Level Trough 15.7 Date/Time Source Procedure Growth Status 01/12/17 01:30 Blood Peripheral Aerobic Blood Culture - Preliminary NO GROWTH IN 3 DAYS Resulted 01/12/17 01:30 Blood Peripheral Anaerobic Blood Culture - Preliminary NO GROWTH IN 3 DAYS Resulted 01/12/17 10:33 Abscess Arm Fungal Smear - Final NO FUNGAL ELEMENTS SEEN. Resulted 01/12/17 10:33 Abscess Arm Fungal Culture Pending Resulted Radiology Last Impressions Upper Extremity CT 01/12/17 0000 Signed Impressions: Service Date/Time: Saturday, January 12, 2017 02:06 - CONCLUSION: 1. Small abscess in the antecubital region predominantly involving the distal biceps muscle with measurements given above. There is an adjacent partially occlusive thrombophlebitis and surrounding cellulitis. Marcin Schofield MD Cardiovascular: Regular Lungs: Clear Abdomen: Non-distended, Non-tender Extremities: Other (see below) Narrative Exam LEFT arm ----two abscess cavities---one superior and one inferior to AC---- outer dressing removed and packing removed from both cavities--- minimal amount of purulent drainage---placed gauze and wrapped with cling wrap A/P Problem List: (1) Status post incision and drainage ICD Codes: Z98.890 - Other specified postprocedural states Status: Acute Permanent Comment: Drainage left antecubital abscess by Dr. Cleary Last Edited By: Marcin Crowley on Jan 13, 2017 14:38 (2) Cellulitis and abscess of other specified site ICD Codes: L03.818 - Cellulitis of other sites; L02.818 - Cutaneous abscess of other sites Status: Acute (3) IV drug abuse ICD Codes: F19.10 - Other psychoactive substance abuse, uncomplicated Status: Acute (4) Dehydration ICD Codes: E86.0 - Dehydration Status: Acute (5) Sepsis ICD Codes: A41.9 - Sepsis, unspecified organism Status: Acute (6) Abscess of left arm ICD Codes: L02.414 - Cutaneous abscess of left upper limb Status: Acute (7) IVDU (intravenous drug user) ICD Codes: F19.90 - Other psychoactive substance use, unspecified, uncomplicated Status: Acute (8) Tobacco abuse ICD Codes: Z72.0 - Tobacco use Status: Acute Assessment and Plan 36 year old male IVDA with LEFT forearm abscess -Dressing change complete---packing removed -Okay to shower -Pain control -IV antibiotics -Discussed with Nurse Coat Repair Inspector David Attending Note - Dr. Cleary Wound is clean; no purulence Home in next day or so The exam, history, and the medical decision-making described in the above note were completed with the assistance of the mid-level provider. I reviewed and agree with the findings presented. I attest that I had a [id number] encounter with the patient on the same day, and personally performed and documented my assessment and findings in the medical record. Jazmine Godwin Jan 15, 2017 11:27 Enrique Cleary MD Jan 28, 2017 17:24
[2017-01-15 12:00] VITALS: BP 148/65; PULSE 82; RESP 16; TEMP 97.9; O2SAT 95
[2017-01-15 16:00] VITALS: BP 122/72; PULSE 61; RESP 16; TEMP 97.4; O2SAT 95
[2017-01-15 20:59] VITALS: BP 131/70; PULSE 63; RESP 18; TEMP 98; O2SAT 96
[2017-01-16 00:27] VITALS: BP 137/82; PULSE 88; RESP 16; TEMP 98.5; O2SAT 98
[2017-01-16] MEDS: VANCOMYCIN 1,500 MG/NS 500 ML IV SCH ×6 (00:45→13:14)
[2017-01-16] MEDS: LORazepam 2 MG/ML VIAL IV PUSH PRN (00:46)
[2017-01-16] MEDS: METHADONE HCL 10 MG TAB PO SCH ×5 (06:00→21:54)
[2017-01-16 08:00] VITALS: BP 128/60; PULSE 61; RESP 16; TEMP 97.5; O2SAT 96
[2017-01-16] MEDS: CEFEPIME INJ 1,000 MG in SODIUM CHLORIDE 0.9% INJ 100 ML IV SCH (08:28)
[2017-01-16] MEDS: NICOTINE 21 MG/24 HR PATCH T-DERMAL SCH (08:28)
[2017-01-16] MEDS: NAPROXEN 500 MG TAB PO SCH ×2 (08:29→21:54)
[2017-01-16] MEDS: DOCUSATE SODIUM 100 MG CAP PO SCH ×2 (08:29→21:54)
[2017-01-16] MEDS: HEPARIN SODIUM - SQ 10,000 UNITS/ML VIAL SQ SCH ×2 (08:30→21:00)
[2017-01-16] MEDS: SODIUM CHLORIDE 0.9% FLUSH 10 ML FLUSH IV FLUSH SCH ×2 (08:30→21:54)
[2017-01-16] MEDS: REMOVE OLD PATCH T-DERMAL SCH (08:30)
[2017-01-16] MEDS: DOCUSATE SODIUM 50 MG/SENNA 8.6 MG TAB PO SCH (08:30)
--- NOTE | 2017-01-16 10:29 | HHI.PR ---
Subjective Remarks Cultures are remaining negative thus far. Left arm is improving through time. No new complaints from the patient. Objective Vital Signs Date Time Temp Pulse Resp B/P (MAP) Pulse Ox O2 Delivery O2 Flow Rate FiO2 01/16/17 08:00 97.5 61 16 128/60 (82) 96 01/16/17 00:27 98.5 88 16 137/82 (100) 98 01/15/17 20:59 98.0 63 18 131/70 (90) 96 01/15/17 16:00 97.4 61 16 122/72 (89) 95 01/15/17 12:00 97.9 82 16 148/65 (92) 95 I/O 01/15/17 01/15/17 01/15/17 01/16/17 01/16/17 01/16/17 06:59 14:59 22:59 06:59 14:59 22:59 Intake Total 1260 ml 500 ml Balance 1260 ml 500 ml Intake Oral 960 ml IV Total 300 ml 500 ml # Voids 4 2 # Bowel Movements 1 0 Result Diagram: 01/14/17 0650 01/15/17 0600 Objective Remarks GENERAL: NAD, A&Ox3 HEAD: Normocephalic. NECK: Supple, trachea midline. No lymphadenopathy. EYES: No scleral icterus. No injection or drainage. CARDIOVASCULAR: Regular rate and rhythm without murmurs, gallops, or rubs. RESPIRATORY: Breath sounds equal bilaterally. No accessory muscle use. GASTROINTESTINAL: Abdomen soft, non-tender, nondistended. MUSCULOSKELETAL: No cyanosis, or edema. SKIN: Warm and dry. Left forearm has a 2 cm laceration from I&D approximately, his left arm has a 4 cm laceration with a 1 cm deep laceration distally from I& D. NEURO: No focal neurological deficitis. A/P Problem List: (1) Sepsis ICD Code: A41.9 - Sepsis, unspecified organism Status: Acute (2) Abscess of left arm ICD Code: L02.414 - Cutaneous abscess of left upper limb Status: Acute (3) Cellulitis and abscess of other specified site ICD Code: L03.818 - Cellulitis of other sites; L02.818 - Cutaneous abscess of other sites Status: Acute (4) IV drug abuse ICD Code: F19.10 - Other psychoactive substance abuse, uncomplicated Status: Acute (5) Dehydration ICD Code: E86.0 - Dehydration Status: Acute (6) Tobacco abuse ICD Code: Z72.0 - Tobacco use Status: Acute (7) Status post incision and drainage ICD Code: Z98.890 - Other specified postprocedural states Status: Acute Permanent Comment: Drainage left antecubital abscess by Dr. Cleary Last Edited By: Marcin Crowley on Jan 13, 2017 14:38 (8) IVDU (intravenous drug user) ICD Code: F19.90 - Other psychoactive substance use, unspecified, uncomplicated Status: Acute Assessment and Plan Assessment and Plan Status post I&D left arm. Sepsis is improved. The shunt is trying to negotiate for an increase in his pain medications. Continue pain treatments. Cultures negative thus far. Follow cultures. Sepsis Resolved Left upper extremity abscess History of IV drug abuse Surgery following Status post I&D IV vancomycin and Zosyn Follow cultures Patient counseled to quit IV drug abuse Dehydration Resolved Stop IV fluids Nicotine dependence Patient has been counseled to quit Continue NicoDerm and as needed DVT prophylaxis Heparin Discharge planning Possible discharge in 1-2 days. Patient will need completion of any further I&D , if needed, prior to discharge. Danielito Ornelas MD Jan 16, 2017 10:29
[2017-01-16 12:00] VITALS: BP 116/69; PULSE 68; RESP 16; TEMP 98.4; O2SAT 96
--- NOTE | 2017-01-16 13:55 | PD.ID.CON ---
History of Present Illness Service ID Consult Requested By Dr Ornelas Reason for Consult arm abscess Primary Care Physician No Primary Care Physician Diagnoses: History of Present Illness pt is a 36 yo male IVDUser who presented 5 days ago with a painful swelling in L antecubital area and fever up to 10.5 A week prior he was shouting IV methadon to this area US showed occlusive thrombosis and fluid collection Pt underwent I+D , but clx are negative - final Blood clx are negative too Pt is on cefepime, vanco - he is iproving but c/o worsning pain in the area below L antecubital fossa Review of Systems Except as stated in HPI: all other systems reviewed are Neg Past Family Social History Allergies: Coded Allergies: No Known Allergies (Unverified , 01/12/17) Past Medical History IVDU aRF 2010 Past Surgical History L hand sx Active Ordered Medications Medications where reviewed in EMR Antibiotics Include: cefepime vancomycin Family History viewed NC Social History + IVDU + tobacco + occ ETOH Physical Exam Vital Signs Vital Signs Date Time Temp Pulse Resp B/P (MAP) Pulse Ox O2 Delivery O2 Flow Rate FiO2 01/16/17 12:00 98.4 68 16 116/69 (85) 96 01/16/17 08:00 97.5 61 16 128/60 (82) 96 01/16/17 00:27 98.5 88 16 137/82 (100) 98 01/15/17 20:59 98.0 63 18 131/70 (90) 96 01/15/17 16:00 97.4 61 16 122/72 (89) 95 Physical Exam CONSTITUTIONAL/GENERAL: This is an adequately nourished patient, in no apparent distress. TUBES/LINES/DRAINS: SKIN: No jaundice, rashes, or lesions. Skin temperature appropriate. Not diaphoretic. HEAD: Atraumatic. Normocephalic. EYES: Pupils equal and round and reactive. Extraocular motions intact. No scleral icterus. No injection or drainage. Fundi not examined. ENT: Hearing grossly normal. Nose without bleeding or purulent drainage. Throat without visible erythema, exudates, masses, or lesions. NECK: Trachea midline. Supple, nontender. No palpable thyroid enlargement or nodularity. CARDIOVASCULAR: Regular rate and rhythm without murmurs, gallops, or rubs. No JVD. Peripheral pulses symmetric. RESPIRATORY/CHEST: Symmetric, unlabored respirations. Clear to auscultation. Breath sounds equal bilaterally. No wheezes, rales, or rhonchi. GASTROINTESTINAL: Abdomen soft, non-tender, nondistended. No hepato-splenomegaly , or palpable masses. No guarding. Bowel sounds present. MUSCULOSKELETAL: Extremities without clubbing, cyanosis, or edema. No joint tenderness or effusion noted. No calf tenderness. No mottling or clubbing. STATUS LOCALIS: incision dry clean with poorly granulating wound right above L A/C area + palpable cords swelling belo w LA a/c area LYMPHATICS: No palpable cervical axillae or supraclavicular adenopathy. NEUROLOGICAL: Awake and alert. Motor and sensory grossly within normal limits. Follows commands. Clear speech. Moves all extremities. PSYCHIATRIC: No obvious anxiety/depression. no apparent hallucinations or other psychotic thought process. Laboratory Date/Time Source Procedure Growth Status 01/12/17 01:30 Blood Peripheral Aerobic Blood Culture - Preliminary NO GROWTH IN 4 DAYS Resulted 01/12/17 01:30 Blood Peripheral Anaerobic Blood Culture - Preliminary NO GROWTH IN 4 DAYS Resulted 01/12/17 10:33 Abscess Arm Fungal Smear - Final NO FUNGAL ELEMENTS SEEN. Resulted 01/12/17 10:33 Abscess Arm Fungal Culture Pending Resulted Result Diagram: 01/14/17 0650 01/15/17 0600 Imaging Last Impressions Upper Extremity CT 01/12/17 0000 Signed Impressions: Service Date/Time: Thursday, January 12, 2017 02:06 - CONCLUSION: 1. Small abscess in the antecubital region predominantly involving the distal biceps muscle with measurements given above. There is an adjacent partially occlusive thrombophlebitis and surrounding cellulitis. Marcin Schofield MD Assessment and Plan Assessment and Plan ? abscess L a/c area - op report revied: no pus, just cloudy fluid - clx negative Occlusive thrombosis IVDU REC's: US dc IV abx start oral clindamycin x 10 more days Discussed Condition With RN pt @ b/s Violeta Iyer MD Jan 16, 2017 13:55
[2017-01-16] MEDS ORDERED: CLIN1CAP6 PO (15:01)
--- NOTE | 2017-01-16 17:09 | RADRPT ---
EXAM DATE/TIME: 01/16/2017 15:35 [facility] COMPARISON: CT FOREARM LEFT W CONTRAST, January 12, 2017, 2:06. INDICATIONS : Left arm swelling and pain. MEDICAL HISTORY : Renal failure. Pneumonia. Alcohol use. Substance use. Tobacco use. SURGICAL HISTORY : Left hand surgery. Incision and drainage to left arm 01/14/17. ENCOUNTER: Initial ACUITY: 1 day PAIN SCORE: 2/10 LOCATION: Left arm. AREA EVALUATED: Left arm distal to antecubital fossa. FINDINGS: MASSES: None. FLUID COLLECTIONS: There are 2 focal fluid collections just distal and lateral to the antecubital fossa. There is a 4.6 x 1.0 x 0.6 cm oval shaped collection superficially, approximately 1 cm deep and a slightly deeper co llection, approximately 2.5 cm deep, measuring 3.9 x 1.2 x 0.7 cm. There is regional soft tissue mendez a without significant hyperemia. The brachial veins deep to this region are patent and compressible. OTHER: Negative. CONCLUSION: There are 2 small oblong fluid collections in the distal brachial region near the antecubital fossa. Both collections are less than or about 1 cm in two dimensions and likely not amenable to drainage at this time. Superficial collection measures 4.6 x 1.0 x 0.6 cm and the slightly deeper collection katelyn sures 3.9 x 1.2 x 0.7 cm. Kurt Gomez MD on January 16, 2017 at 16:56 Board Certified Radiologist. This report was verified electronically.
[2017-01-16] MEDS ORDERED: LACTTAB8 PO (18:05)
[2017-01-16] MEDS: CLINDAMYCIN 150 MG CAP PO SCH ×3 (18:20→23:33)
[2017-01-16 20:00] VITALS: BP 124/71; PULSE 61; RESP 18; TEMP 97.8; O2SAT 97
--- NOTE | 2017-01-16 23:05 | RADRPT ---
EXAM DATE/TIME: 01/16/2017 21:27 [facility] COMPARISON: No previous studies available for comparison. INDICATIONS : Left arm pain and swelling. MEDICAL HISTORY : Renal failure. Pneumonia. Alcohol use. Substance use. Tobacco use. SURGICAL HISTORY : Left hand surgery. Incision and drainage to left arm 01/14/17. ENCOUNTER: Subsequent ACUITY: 1 day PAIN SCORE: 4/10 LOCATION: Left arm. FINDINGS: There is spontaneous flow documented in the brachial, basilic, cephalic, axillary, and subclavian vei ns. The vessels are compressible and augmentation response is documented. No filling defects are se en. The flow is phasic with respiration. Direction of flow in the jugular vein is caudal. CONCLUSION: Normal examination. Marcin Schofield MD on January 16, 2017 at 23:04 Board Certified Radiologist. This report was verified electronically.
[2017-01-17] VITALS: BP 115/58; PULSE 64; RESP 18; TEMP 98.6; O2SAT 98
[2017-01-17 04:00] VITALS: BP 116/68; PULSE 52; RESP 16; RESP 18; TEMP 98.1; O2SAT 99
[2017-01-17] MEDS ORDERED: PHARMACY ORDERED LAB ONE (05:45)
[2017-01-17] MEDS: CLINDAMYCIN 150 MG CAP PO SCH ×2 (06:13→14:03)
[2017-01-17] MEDS: METHADONE HCL 10 MG TAB PO SCH ×3 (06:13→14:03)
[2017-01-17 08:00] VITALS: BP 109/65; PULSE 67; RESP 19; TEMP 98; O2SAT 97
[2017-01-17] MEDS: REMOVE OLD PATCH T-DERMAL SCH (09:00)
[2017-01-17] MEDS: SODIUM CHLORIDE 0.9% FLUSH 10 ML FLUSH IV FLUSH SCH (09:00)
[2017-01-17] MEDS: NICOTINE 21 MG/24 HR PATCH T-DERMAL SCH (10:17)
[2017-01-17] MEDS: NAPROXEN 500 MG TAB PO SCH (10:18)
[2017-01-17] MEDS: HEPARIN SODIUM - SQ 10,000 UNITS/ML VIAL SQ SCH (10:18)
[2017-01-17] MEDS: DOCUSATE SODIUM 100 MG CAP PO SCH (10:19)
[2017-01-17 12:00] VITALS: BP 116/56; PULSE 61; RESP 19; TEMP 97.6; O2SAT 96
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
[2017-01-17 16:00] VITALS: BP 123/58; PULSE 62; RESP 19; TEMP 97.8; O2SAT 97
--- NOTE | 2017-01-17 16:34 | HHI.PR ---
Subjective Subjective Notes Ready to go home Objective Vitals/I&O Vital Signs Date Time Temp Pulse Resp B/P (MAP) Pulse Ox O2 Delivery O2 Flow Rate FiO2 01/17/17 12:00 97.6 61 19 116/56 (76) 96 Labs Date/Time Source Procedure Growth Status 01/12/17 01:30 Blood Peripheral Aerobic Blood Culture - Final NO GROWTH IN 5 DAYS Complete 01/12/17 01:30 Blood Peripheral Anaerobic Blood Culture - Final NO GROWTH IN 5 DAYS Complete 01/12/17 10:33 Abscess Arm Fungal Smear - Final NO FUNGAL ELEMENTS SEEN. Resulted 01/12/17 10:33 Abscess Arm Fungal Culture Pending Resulted Radiology Last Impressions Upper Extremity CT 01/12/17 0000 Signed Impressions: Service Date/Time: Thursday, January 12, 2017 02:06 - CONCLUSION: 1. Small abscess in the antecubital region predominantly involving the distal biceps muscle with measurements given above. There is an adjacent partially occlusive thrombophlebitis and surrounding cellulitis. Marcin Schofield MD Cardiovascular: Regular Lungs: Clear Abdomen: Non-distended, Non-tender Extremities: Other (see below) Narrative Exam LEFT arm ----two abscess cavities---one superior and one inferior to AC---- outer dressing removed--no drainage A/P Problem List: (1) Status post incision and drainage ICD Codes: Z98.890 - Other specified postprocedural states Status: Acute Permanent Comment: Drainage left antecubital abscess by Dr. Cleary Last Edited By: Marcin Crowley on Jan 13, 2017 14:38 (2) Cellulitis and abscess of other specified site ICD Codes: L03.818 - Cellulitis of other sites; L02.818 - Cutaneous abscess of other sites Status: Acute (3) IV drug abuse ICD Codes: F19.10 - Other psychoactive substance abuse, uncomplicated Status: Acute (4) Dehydration ICD Codes: E86.0 - Dehydration Status: Acute (5) Sepsis ICD Codes: A41.9 - Sepsis, unspecified organism Status: Acute (6) Abscess of left arm ICD Codes: L02.414 - Cutaneous abscess of left upper limb Status: Acute (7) IVDU (intravenous drug user) ICD Codes: F19.90 - Other psychoactive substance use, unspecified, uncomplicated Status: Acute (8) Tobacco abuse ICD Codes: Z72.0 - Tobacco use Status: Acute Assessment and Plan 36 year old male IVDA with LEFT forearm abscess -Dressing change complete -Okay to shower -Pain control -Cipro -Discussed with Nurse Recruiter Manager David lopez for DC Attending Note - Dr. Cleary Wounds are clean Explained that they need to be left open, otherwise they may get infected/and form an abscess again. (He wanted them closed/skin edges brought together; I stated that is not advisable). The exam, history, and the medical decision-making described in the above note were completed with the assistance of the mid-level provider. I reviewed and agree with the findings presented. I attest that I had a [id number] encounter with the patient on the same day, and personally performed and documented my assessment and findings in the medical record. Jazmine Godiwn Jan 17, 2017 16:34 Enrique Cleary MD Jan 28, 2017 17:28
== END 2017-01-17 16:56 | disposition home or self-care (01) | DRG 872 ==
LOC: NEPD 00:39 → NEDA 03:41 → N05A 05:15
PROVIDERS: ADMIT Hospitalist; ATTEND Hospitalist
PROC: 0H9CXZZ Drainage of Left Upper Arm Skin, External Approach (ICD-10-PCS; principal; 2017-01-12 10:02)
DX: A41.9 Sepsis, unspecified organism (principal); I80.8 Phlebitis and thrombophlebitis of other sites; L02.414 Cutaneous abscess of left upper limb; L03.114 Cellulitis of left upper limb; F11.10 Opioid abuse, uncomplicated; F17.210 Nicotine dependence, cigarettes, uncomplicated; E86.0 Dehydration; F19.10 Other psychoactive substance abuse, uncomplicated
CPT/HCPCS: 73201; 76882; 76937; 80053; 80202; 82550; 82565; 83605; 85025; 85610; 85730; 87015; 87040; 87070; 87102; 87116; 87205; 87206; 93971; 96361; 96365; 96367; 96375; J0692; J1644; J1885; J2060; J2270; J2543; J3010; J3370; J7030; J7040; J7050; J7120; Q9967

== ENCOUNTER 2017-02-03 13:26 | Emergency (ER) | payer OTHER ==
[~2017-02-03 13:26] MED LIST changes: -BACT800T5 PO; -CEPH500C3 PO; +CLIN1CAP6 PO; -CYCL-36 PO; -DICL50 PO; +LACTTAB8 PO; +METH10TA PO
[2017-02-03 13:34] VITALS: BP 143/67; PULSE 113; RESP 17; TEMP 99; O2SAT 97
[2017-02-03] MEDS ORDERED: LORazepam 2 MG/ML VIAL IM ONE (13:45)
[2017-02-03] MEDS ORDERED: HALOPERIDOL LACTATE 5 MG/ML AMP IM ONE (13:45)
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
[2017-02-03] MEDS ORDERED: DIAZ5 PO (14:10)
[2017-02-03] MEDS ORDERED: TRAZ1TAB45 PO (14:10)
[2017-02-03 14:29] LABS: AUTOMATED NEUTROPHIL # 7.3 TH/MM3 (1.8-7.7); BASOPHIL # 0.1 TH/MM3 (0-0.2); BASOPHIL % 0.6 % (0.0-2.0); EOSINOPHIL # 0.1 TH/MM3 (0-0.4); EOSINOPHIL % 0.6 % (0.0-4.0); HEMATOCRIT 37.3 % (39.0-51.0); HEMO FLAGS DIFF FINAL; LYMPH % 21.9 % (9.0-44.0); LYMPHOCYTE # 2.4 TH/MM3 (1.0-4.8); MEAN CELL VOLUME 81.3 FL (80.0-100.0); MEAN CORPUSCULAR HEMOGLOBIN 27.3 PG (27.0-34.0); MEAN CORPUSCULAR HGB CONC 33.5 % (32.0-36.0); MONO % 10.8 % (0.0-8.0); NEUT % 66.1 % (16.0-70.0); PLATELET COUNT 169 TH/MM3 (150-450); RED BLOOD COUNT 4.59 MIL/MM3 (4.50-5.90); RED CELL DISTRIBUTION WIDTH 13.9 % (11.6-17.2); WHITE BLOOD COUNT 11.1 TH/MM3 (4.0-11.0)
[2017-02-03 14:44] LABS: ANION GAP 7 MEQ/L (5-15); BICARBONATE 28.3 MEQ/L (21.0-32.0); BLOOD UREA NITROGEN 19 MG/DL (7-18); CHLORIDE 99 MEQ/L (98-107); GLOMERULAR FILTRATION RATE 72 ML/MIN (>89); POTASSIUM 3.8 MEQ/L (3.5-5.1); SODIUM (NA) 134 MEQ/L (136-145)
[2017-02-03 15:07] VITALS: PULSE 86; RESP 15; O2SAT 97
[2017-02-03 15:13] LABS: ALCOHOL LESS THAN 3 MG/DL (0-5)
[2017-02-03 16:13] VITALS: BP 111/69; PULSE 79; RESP 18; O2SAT 97
[2017-02-03 23:10] VITALS: BP 97/56; PULSE 70; RESP 18; TEMP 97.1; O2SAT 98
[2017-02-04 02:14] VITALS: BP 101/56; PULSE 57; RESP 18; TEMP 97.2; O2SAT 96
[2017-02-04 05:05] VITALS: BP 110/57; PULSE 79; RESP 18; TEMP 97.7; O2SAT 97
[2017-02-04 11:42] VITALS: BP 101/52; PULSE 72
[2017-02-04 14:30] VITALS: BP 120/64; PULSE 62; RESP 18
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
--- NOTE | 2017-02-04 19:01 | PD ---
Physical Exam Date Seen by Provider: Feb 04, 2017 Narrative For full history and physical examination please see previous provider's notes. Data Data Last Documented VS Vital Signs Date Time Temp Pulse Resp B/P (MAP) Pulse Ox O2 Delivery O2 Flow Rate FiO2 02/04/17 14:30 62 18 120/64 (82) Room Air 02/04/17 05:05 97.7 97 Orders Orders Complete Blood Count With Diff (02/03/17 13:39) Basic Metabolic Panel (Bmp) (02/03/17 13:39) Psych Screen (02/03/17 13:39) Drug Screen, Random Urine (02/03/17 13:39) Alcohol (Ethanol) (02/03/17 13:39) Haloperidol Inj (Haldol Inj) (02/03/17 13:45) Lorazepam Inj (Ativan Inj) (02/03/17 13:45) Diet Regular Basic (02/04/17 Breakfast) Diet Regular Basic (02/04/17 Lunch) Diet Regular Basic (02/04/17 Dinner) Labs Laboratory Tests Test 02/03/17 14:05 White Blood Count 11.1 TH/MM3 Red Blood Count 4.59 MIL/MM3 Hemoglobin 12.5 GM/DL Hematocrit 37.3 % Mean Corpuscular Volume 81.3 FL Mean Corpuscular Hemoglobin 27.3 PG Mean Corpuscular Hemoglobin Concent 33.5 % Red Cell Distribution Width 13.9 % Platelet Count 169 TH/MM3 Mean Platelet Volume 8.1 FL Neutrophils (%) (Auto) 66.1 % Lymphocytes (%) (Auto) 21.9 % Monocytes (%) (Auto) 10.8 % Eosinophils (%) (Auto) 0.6 % Basophils (%) (Auto) 0.6 % Neutrophils # (Auto) 7.3 TH/MM3 Lymphocytes # (Auto) 2.4 TH/MM3 Monocytes # (Auto) 1.2 TH/MM3 Eosinophils # (Auto) 0.1 TH/MM3 Basophils # (Auto) 0.1 TH/MM3 CBC Comment DIFF FINAL Differential Comment Blood Urea Nitrogen 19 MG/DL Creatinine 1.16 MG/DL Random Glucose 101 MG/DL Calcium Level 8.1 MG/DL Sodium Level 134 MEQ/L Potassium Level 3.8 MEQ/L Chloride Level 99 MEQ/L Carbon Dioxide Level 28.3 MEQ/L Anion Gap 7 MEQ/L Estimat Glomerular Filtration Rate 72 ML/MIN Urine Opiates Screen POS Urine Barbiturates Screen NEG Urine Amphetamines Screen NEG Urine Benzodiazepines Screen POS Urine Cocaine Screen POS Urine Cannabinoids Screen NEG Ethyl Alcohol Level LESS THAN 3 MG/DL [facility] Medical Record Reviewed: Yes Supervised Visit with VERONICA: Yes Interpretation(s) Laboratory Tests Test 02/03/17 14:05 White Blood Count 11.1 TH/MM3 Red Blood Count 4.59 MIL/MM3 Hemoglobin 12.5 GM/DL Hematocrit 37.3 % Mean Corpuscular Volume 81.3 FL Mean Corpuscular Hemoglobin 27.3 PG Mean Corpuscular Hemoglobin Concent 33.5 % Red Cell Distribution Width 13.9 % Platelet Count 169 TH/MM3 Mean Platelet Volume 8.1 FL Neutrophils (%) (Auto) 66.1 % Lymphocytes (%) (Auto) 21.9 % Monocytes (%) (Auto) 10.8 % Eosinophils (%) (Auto) 0.6 % Basophils (%) (Auto) 0.6 % Neutrophils # (Auto) 7.3 TH/MM3 Lymphocytes # (Auto) 2.4 TH/MM3 Monocytes # (Auto) 1.2 TH/MM3 Eosinophils # (Auto) 0.1 TH/MM3 Basophils # (Auto) 0.1 TH/MM3 CBC Comment DIFF FINAL Differential Comment Blood Urea Nitrogen 19 MG/DL Creatinine 1.16 MG/DL Random Glucose 101 MG/DL Calcium Level 8.1 MG/DL Sodium Level 134 MEQ/L Potassium Level 3.8 MEQ/L Chloride Level 99 MEQ/L Carbon Dioxide Level 28.3 MEQ/L Anion Gap 7 MEQ/L Estimat Glomerular Filtration Rate 72 ML/MIN Urine Opiates Screen POS Urine Barbiturates Screen NEG Urine Amphetamines Screen NEG Urine Benzodiazepines Screen POS Urine Cocaine Screen POS Urine Cannabinoids Screen NEG Ethyl Alcohol Level LESS THAN 3 MG/DL Vital Signs Date Time Temp Pulse Resp B/P (MAP) Pulse Ox O2 Delivery O2 Flow Rate FiO2 02/04/17 14:30 62 18 120/64 (82) Room Air 02/04/17 11:42 72 101/52 (68) Room Air 02/04/17 05:05 97.7 79 18 110/57 (74) 97 Room Air 02/04/17 02:14 97.2 57 18 101/56 (71) 96 Room Air 02/03/17 23:10 97.1 70 18 97/56 (70) 98 Room Air 02/03/17 16:13 79 18 111/69 (83) 97 Room Air 02/03/17 15:07 86 15 97 02/03/17 13:34 99.0 113 17 143/67 (92) 97 Narrative Course The patient was brought into emergency Department under Brock act, he was seen and evaluated by emergency room physician and medically cleared. He was then evaluated by Dr. Owens who stated "Patient interviewed, chart reviewed and case discussed with nurse. Patient appears to have a drug abuse problem and is no longer intoxicated. At this time he is not suicidal, homicidal, psychotic, etc. In this physician's opinion he no longer qualifies for the Brcok act or involuntary psychiatric hospitalization. He was advised to stop using drugs and to seek treatment at [facility]" patient will be discharged home and was advised to follow-up at [facility]. Diagnosis Primary Impression: Cocaine abuse Additional Impressions: Benzodiazepine abuse Opiate abuse, episodic Referrals: [facility] 1 day Patient Instructions: Benzodiazepine Abuse (DC), General Instructions Additional Instruction: Follow-up at [facility] as advised Avoid abusing illicit drugs Return to emergency department for any new or worsening symptoms Med/Other Pt SpecificInfo: No Change to Meds Disposition: 01 DISCHARGE HOME Condition: Stable Viola Burciaga Feb 04, 2017 19:01
== END 2017-02-04 19:34 | disposition home or self-care (01) ==
LOC: NEPD 13:26 → NEPJ 02-04 19:34
DX: F43.25 Adjustment disorder with mixed disturbance of emotions and conduct (principal); F14.10 Cocaine abuse, uncomplicated; F11.10 Opioid abuse, uncomplicated; F13.10 Sedative, hypnotic or anxiolytic abuse, uncomplicated
CPT/HCPCS: 80048; 80307; 85025; 96372; 99284; J1630; J2060

== ENCOUNTER 2017-03-08 20:32 | Emergency (ER) | payer OTHER ==
[~2017-03-08] VITALS: Ht 182.9 cm; Wt 95.5 kg
[~2017-03-08 20:32] MED LIST changes: -CLIN1CAP6 PO; +DIAZ5 PO; -LACTTAB8 PO; +TRAZ1TAB45 PO
[2017-03-08] MEDS ORDERED: SODIUM CHLOR 0.9% 1000 ML INJ 1,000 ML IV ONE ×2 (20:34→22:30)
[2017-03-08 20:41] VITALS: BP 133/78; PULSE 125; RESP 26; TEMP 98.3; O2SAT 96
[2017-03-08] MEDS ORDERED: SODIUM CHLORIDE 0.9% FLUSH 10 ML FLUSH IVF PRN (20:45)
--- NOTE | 2017-03-08 20:51 | PD ---
HPI Chief Complaint: overdose Time Seen by Provider: 20:34 Travel History International Travel<30 days: No Contact w/Intl Traveler<30days: No History of Present Illness HPI 36-year-old male presents as a Brock act by police with report of initial unresponsiveness when they arrived on scene for a potential overdose call. Shortly after they arrived patient was acting erratic and went behind a cabinet with a small bag of white stuff per the secretary of police. They brought him here for medical clearance. The patient is initially uncooperative and states he didn't do anything and doesn't use dope. History is significantly limited on initial evaluation. [facility] Past Medical History Narrative Medical by records Diminished Hearing: No Immunizations Current: Yes Pneumonia: Yes Renal Failure: Yes (ACUTE RENAL FAILURE 2009) Past Surgical History Narrative Surgical by records Pacemaker: No Other Surgery: Yes (LEFT arm sx) Social History Narrative Social History by records, patient denies Alcohol Use: Yes (RARE) Tobacco Use: Yes (1/2 PPD) Substance Use: Yes Allergies-Medications (Allergen,Severity, Reaction): Coded Allergies: No Known Allergies (Unverified , 02/03/17) Reported Meds & Prescriptions Reported Meds & Active Scripts Active Reported Valium (Diazepam) 5 Mg Tab 5 Mg PO TID PRN Trazodone (Trazodone HCl) 150 Mg Tablet 150 Mg PO HS Methadone (Methadone HCl) 10 Mg Tab 10 Mg PO 5 TIMES A DAY Review of Systems ROS Limitations: Intoxication, Poor Historian Physical Exam Exam Limitations: Intoxication Narrative GENERAL: Well-nourished, well-developed patient. SKIN: Warm and diaphoretic-patient states he's anxious and gets like that HEAD: Normocephalic and atraumatic. EYES: No injection or drainage. Pinpoint pupils ENT: No nasal drainage noted. NECK: Supple, trachea midline. CARDIOVASCULAR: Tachycardic rate and regular rhythm RESPIRATORY: Mild increased effort. No accessory muscle use. NEUROLOGICAL: Awake and alert to name. Moves all extremities, slurred speech Data Data Last Documented VS Vital Signs Date Time Temp Pulse Resp B/P (MAP) Pulse Ox O2 Delivery O2 Flow Rate FiO2 03/09/17 00:30 84 14 98/55 (69) 98 Room Air 99.4, 108/61 Orders Orders Electrocardiogram (03/08/17 20:34) Complete Blood Count With Diff (03/08/17 20:34) Comprehensive Metabolic Panel (03/08/17 20:34) Iv Access Insert/Monitor (03/08/17 20:34) Ecg Monitoring (03/08/17 20:34) Oximetry (03/08/17 20:34) Sodium Chloride 0.9% Flush (Ns Flush) (03/08/17 20:45) Sodium Chlor 0.9% 1000 Ml Inj (Ns 1000 M (03/08/17 20:34) Drug Screen, Random Urine (03/08/17 20:34) Alcohol (Ethanol) (03/08/17 20:34) Tylenol (Acetaminophen) (03/08/17 20:34) Creatine Kinase (Cpk) (03/08/17 20:46) Sodium Chlor 0.9% 1000 Ml Inj (Ns 1000 M (03/08/17 22:30) Sodium Chlor 0.9% 1000 Ml Inj (Ns 1000 M (03/09/17 00:45) Abdomen, Kub Only (03/09/17 ) Chest, Single Ap (03/09/17 ) Ct Abd/Pel W Iv Contrast(Rout) (03/09/17 ) Iohexol 350 Inj (Omnipaque 350 Inj) (03/09/17 01:39) Psych Screen (03/09/17 02:03) Labs Laboratory Tests Test 03/08/17 19:26 03/08/17 20:45 Urine Opiates Screen POS Urine Barbiturates Screen POS Urine Amphetamines Screen NEG Urine Benzodiazepines Screen POS Urine Cocaine Screen POS Urine Cannabinoids Screen NEG White Blood Count 9.0 TH/MM3 Red Blood Count 5.17 MIL/MM3 Hemoglobin 14.2 GM/DL Hematocrit 43.1 % Mean Corpuscular Volume 83.5 FL Mean Corpuscular Hemoglobin 27.5 PG Mean Corpuscular Hemoglobin Concent 32.9 % Red Cell Distribution Width 14.7 % Platelet Count 211 TH/MM3 Mean Platelet Volume 8.6 FL Neutrophils (%) (Auto) 33.7 % Lymphocytes (%) (Auto) 53.0 % Monocytes (%) (Auto) 8.1 % Eosinophils (%) (Auto) 4.8 % Basophils (%) (Auto) 0.4 % Neutrophils # (Auto) 3.0 TH/MM3 Lymphocytes # (Auto) 4.8 TH/MM3 Monocytes # (Auto) 0.7 TH/MM3 Eosinophils # (Auto) 0.4 TH/MM3 Basophils # (Auto) 0.0 TH/MM3 CBC Comment AUTO DIFF Differential Comment AUTO DIFF CONFIRMED Platelet Estimate NORMAL Platelet Morphology Comment NORMAL Blood Urea Nitrogen 17 MG/DL Creatinine 1.63 MG/DL Random Glucose 198 MG/DL Total Protein 8.4 GM/DL Albumin 3.8 GM/DL Calcium Level 8.8 MG/DL Alkaline Phosphatase 85 U/L Aspartate Amino Transf (AST/SGOT) 48 U/L Alanine Aminotransferase (ALT/SGPT) 59 U/L Total Bilirubin 0.3 MG/DL Sodium Level 137 MEQ/L Potassium Level 3.4 MEQ/L Chloride Level 101 MEQ/L Carbon Dioxide Level 21.9 MEQ/L Anion Gap 14 MEQ/L Estimat Glomerular Filtration Rate 49 ML/MIN Total Creatine Kinase 276 U/L Acetaminophen Level LESS THAN 2.0 MCG/ML Ethyl Alcohol Level LESS THAN 3 MG/DL MDM Medical Decision Making Medical Screen Exam Complete: Yes Emergency Medical Condition: Yes Medical Record Reviewed: Yes (pmh confirmed) Interpretation(s) EKG is sinus tachycardia at [address] segment elevation CBC & BMP Diagram 03/08/17 20:45 Total Protein 8.4 H, Albumin 3.8, Calcium Level 8.8, Alkaline Phosphatase 85, Aspartate Amino Transf (AST/SGOT) 48 H, Alanine Aminotransferase (ALT/SGPT) 59, Total Bilirubin 0.3 Last 24 hours Impressions Chest X-Ray 03/09/17 0000 Signed Impressions: Service Date/Time: Thursday, March 09, 2017 01:00 - CONCLUSION: Normal examination. Bradford Barnett MD Abdomen/Pelvis CT 03/09/17 0000 Signed Impressions: Service Date/Time: Thursday, March 09, 2017 01:26 - CONCLUSION: 1. No acute abnormality seen. 2. Focal density on the skin in the left lower abdomen. Bradford Barnett MD Abdomen X-Ray 03/09/17 0000 Signed Impressions: Service Date/Time: Thursday, March 09, 2017 00:57 - CONCLUSION: 1.8 cm hyperdense area seen at the lateral left abdomen representing either a faint calcification or something on the patient.nm Bradford Barnett MD Differential Diagnosis Overdose, coingestion, renal failure, rhabdomyolysis Narrative Course Will check lab work and dose with IV fluids and monitor X-rays added on to rule out foreign body for possible ingestion of bag X-ray shows possible foreign body will check CT No findings on CT, BP has improved 108/61, patient denies any medical complaints but states he doesn't want to live in this world, patient is already under Brock act and given active suicidal ideation and recent overdose he needs psychiatry care Diagnosis Primary Impression: Suicidal behavior Qualified Codes: T14.91XA - Suicide attempt, initial encounter Additional Impression: Substance abuse Sharron Castelan MD Mar 08, 2017 20:51
[2017-03-08 21:41] LABS: BASOPHIL % 0.4 % (0.0-2.0); EOSINOPHIL # 0.4 TH/MM3 (0-0.4); EOSINOPHIL % 4.8 % (0.0-4.0); HEMATOCRIT 43.1 % (39.0-51.0); LYMPHOCYTE # 4.8 TH/MM3 (1.0-4.8); MEAN CELL VOLUME 83.5 FL (80.0-100.0); MEAN CORPUSCULAR HEMOGLOBIN 27.5 PG (27.0-34.0); MEAN CORPUSCULAR HGB CONC 32.9 % (32.0-36.0); MONO % 8.1 % (0.0-8.0); NEUT % 33.7 % (16.0-70.0); PLATELET COUNT 211 TH/MM3 (150-450); RED BLOOD COUNT 5.17 MIL/MM3 (4.50-5.90); RED CELL DISTRIBUTION WIDTH 14.7 % (11.6-17.2)
[2017-03-08 21:44] LABS: HEMO FLAGS AUTO DIFF
[2017-03-08 21:57] LABS: ALT (GPT) 59 U/L (12-78); ANION GAP 14 MEQ/L (5-15); AST (GOT) 48 U/L (15-37); BICARBONATE 21.9 MEQ/L (21.0-32.0); BLOOD UREA NITROGEN 17 MG/DL (7-18); CHLORIDE 101 MEQ/L (98-107); GLOMERULAR FILTRATION RATE 49 ML/MIN (>89); POTASSIUM 3.4 MEQ/L (3.5-5.1); SODIUM (NA) 137 MEQ/L (136-145)
[2017-03-08 21:58] LABS: ALCOHOL LESS THAN 3 MG/DL (0-5)
[2017-03-08 22:00] LABS: ALKALINE PHOSPHATASE 85 U/L (45-117); TOTAL BILIRUBIN ADULT 0.3 MG/DL (0.2-1.0)
[2017-03-08 22:02] LABS: ACETAMINOPHEN LESS THAN 2.0 MCG/ML (10.0-30.0)
[2017-03-08 22:12] LABS: PLATELET ESTIMATE SMEAR NORMAL (NORMAL); PLATELET MORPHOLOGY NORMAL (NORMAL); SCAN/DIFF AUTO DIFF CONFIRMED
[2017-03-09] VITALS (9 sets, daily range): BP systolic 94–124; BP diastolic 53–66; PULSE 56–86; RESP 14–19; TEMP 97.7–99.4; O2SAT 98–100
[2017-03-09] MEDS ORDERED: SODIUM CHLOR 0.9% 1000 ML INJ 1,000 ML IV ONE (00:45)
--- NOTE | 2017-03-09 01:11 | RADRPT ---
EXAM DATE/TIME: 03/09/2017 00:57 [facility] COMPARISON: No previous studies available for comparison. INDICATIONS : Abdominal pain and nausea MEDICAL HISTORY : Renal failure, acute. SURGICAL HISTORY : None. ENCOUNTER: Initial ACUITY: 1 day PAIN SCORE: 7/10 LOCATION: Bilateral Abdomen FINDINGS: Supine view of the abdomen was performed. The abdominal bowel gas pattern is normal. There is a sherly nt 1.8 cm density seen over the left abdomen which could related to a calcification or something on t he patient. The osseous structures are unremarkable. CONCLUSION: 1.8 cm hyperdense area seen at the lateral left abdomen representing either a faint calcification or something on the patient.nm Bradford Barnett MD on March 09, 2017 at 1:07 Board Certified Radiologist. This report was verified electronically.
--- NOTE | 2017-03-09 01:11 | RADRPT ---
EXAM DATE/TIME: 03/09/2017 01:00 [facility] COMPARISON: No previous studies available for comparison. INDICATIONS : Chest pain for several days MEDICAL HISTORY : Renal failure, acute. SURGICAL HISTORY : None. ENCOUNTER: Initial ACUITY: 4 - 6 days PAIN SCORE: 9/10 LOCATION: Bilateral chest FINDINGS: A single view of the chest demonstrates the lungs to be symmetrically aerated without evidence of mas s, infiltrate or effusion. The cardiomediastinal contours are unremarkable. Osseous structures are intact. CONCLUSION: Normal examination. Bradford Barnett MD on March 09, 2017 at 1:09 Board Certified Radiologist. This report was verified electronically.
[2017-03-09] MEDS ORDERED: IOHEXOL 350 MG/ML 10 ML VIAL (for RAD DIAG) IVCONTRAST ONE (01:39)
--- NOTE | 2017-03-09 01:54 | RADRPT ---
EXAM DATE/TIME: 03/09/2017 01:26 [facility] COMPARISON: ABDOMEN KUB ONLY, March 09, 2017, 0:57. INDICATIONS : Abnormal x-ray; possible ingestion of drugs. IV CONTRAST: 96 cc Omnipaque 350 (iohexol) IV ORAL CONTRAST: No oral contrast ingested. RADIATION DOSE: 6.64 CTDIvol (mGy) MEDICAL HISTORY : None SURGICAL HISTORY : None. ENCOUNTER: Initial ACUITY: 1 day PAIN SCALE: 0/10 LOCATION: abdomen TECHNIQUE: Volumetric scanning of the abdomen and pelvis was performed. Using automated exposure control and ad justment of the mA and/or kV according to patient size, radiation dose was kept as low as reasonably achievable to obtain optimal diagnostic quality images. DICOM format image data is available electro nically for review and comparison. FINDINGS: Area of density seen on a KUB represent something on the patient. This is seen in the anterior left l ower abdominal skin. LOWER LUNGS: The visualized lower lungs are clear. LIVER: Homogeneous density without lesion. There is no dilation of the biliary tree. No calcified gallston es. SPLEEN: Normal size without lesion. PANCREAS: Within normal limits. KIDNEYS: Normal in size and shape. There is no mass, stone or hydronephrosis. ADRENAL GLANDS: Within normal limits. VASCULAR: There is no aortic aneurysm. BOWEL/MESENTERY: The stomach, small bowel, and colon demonstrate no acute abnormality. There is no free intraperitone al air or fluid. ABDOMINAL WALL: Within normal limits. RETROPERITONEUM: There is no lymphadenopathy. BLADDER: No wall thickening or mass. REPRODUCTIVE: Within normal limits. INGUINAL: There is no lymphadenopathy or hernia. MUSCULOSKELETAL: Within normal limits for patient age. CONCLUSION: 1. No acute abnormality seen. 2. Focal density on the skin in the left lower abdomen. Bradford Barnett MD on March 09, 2017 at 1:50 Board Certified Radiologist. This report was verified electronically.
--- NOTE | 2017-03-09 07:59 | EKG ---
Date Performed: 03/08/2017 Time Performed: 20:41:59 PTAGE: 36 years EKG: SINUS TACHYCARDIA NONSPECIFIC ST & T-WAVE ABNORMALITY ABNORMAL RHYTHM ECG NO PREVIOUS TRACING DOCTOR: Tiburcio Vera Interpretating Date/Time 03/09/2017 07:57:20
[2017-03-09] MEDS ORDERED: DOCUSATE SODIUM 100 MG CAP PO ONE (17:00)
[2017-03-10 02:52] VITALS: BP 121/66; PULSE 56; RESP 15; O2SAT 98
[2017-03-10 06:27] VITALS: BP 115/56; PULSE 58; RESP 18
[2017-03-10 10:00] VITALS: BP 110/68; PULSE 69; RESP 16; O2SAT 98
--- NOTE | 2017-03-10 10:23 | PD ---
Physical Exam Time Seen by Provider: 10:[address] Verduzco has evaluated the patient, lifted Brock act and cleared the patient for discharge. Data Data Last Documented VS Vital Signs Date Time Temp Pulse Resp B/P (MAP) Pulse Ox O2 Delivery O2 Flow Rate FiO2 03/10/17 10:54 03/10/17 10:00 69 16 98 03/09/17 18:00 97.7 Room Air Orders Orders Electrocardiogram (03/08/17 20:34) Complete Blood Count With Diff (03/08/17 20:34) Comprehensive Metabolic Panel (03/08/17 20:34) Iv Access Insert/Monitor (03/08/17 20:34) Ecg Monitoring (03/08/17 20:34) Oximetry (03/08/17 20:34) Sodium Chloride 0.9% Flush (Ns Flush) (03/08/17 20:45) Sodium Chlor 0.9% 1000 Ml Inj (Ns 1000 M (03/08/17 20:34) Drug Screen, Random Urine (03/08/17 20:34) Alcohol (Ethanol) (03/08/17 20:34) Tylenol (Acetaminophen) (03/08/17 20:34) Creatine Kinase (Cpk) (03/08/17 20:46) Sodium Chlor 0.9% 1000 Ml Inj (Ns 1000 M (03/08/17 22:30) Sodium Chlor 0.9% 1000 Ml Inj (Ns 1000 M (03/09/17 00:45) Abdomen, Kub Only (03/09/17 ) Chest, Single Ap (03/09/17 ) Ct Abd/Pel W Iv Contrast(Rout) (03/09/17 ) Iohexol 350 Inj (Omnipaque 350 Inj) (03/09/17 01:39) Psych Screen (03/09/17 02:03) Diet Regular Basic (03/09/17 Breakfast) Diet Regular Basic (03/09/17 Lunch) Diet Regular Basic (03/09/17 Dinner) Docusate Sodium (Colace) (03/09/17 17:00) Diet Regular Basic (03/10/17 Breakfast) Ed Discharge Order (03/10/17 10:23) Labs Laboratory Tests Test 03/08/17 19:26 03/08/17 20:45 Urine Opiates Screen POS Urine Barbiturates Screen POS Urine Amphetamines Screen NEG Urine Benzodiazepines Screen POS Urine Cocaine Screen POS Urine Cannabinoids Screen NEG White Blood Count 9.0 TH/MM3 Red Blood Count 5.17 MIL/MM3 Hemoglobin 14.2 GM/DL Hematocrit 43.1 % Mean Corpuscular Volume 83.5 FL Mean Corpuscular Hemoglobin 27.5 PG Mean Corpuscular Hemoglobin Concent 32.9 % Red Cell Distribution Width 14.7 % Platelet Count 211 TH/MM3 Mean Platelet Volume 8.6 FL Neutrophils (%) (Auto) 33.7 % Lymphocytes (%) (Auto) 53.0 % Monocytes (%) (Auto) 8.1 % Eosinophils (%) (Auto) 4.8 % Basophils (%) (Auto) 0.4 % Neutrophils # (Auto) 3.0 TH/MM3 Lymphocytes # (Auto) 4.8 TH/MM3 Monocytes # (Auto) 0.7 TH/MM3 Eosinophils # (Auto) 0.4 TH/MM3 Basophils # (Auto) 0.0 TH/MM3 CBC Comment AUTO DIFF Differential Comment AUTO DIFF CONFIRMED Platelet Estimate NORMAL Platelet Morphology Comment NORMAL Blood Urea Nitrogen 17 MG/DL Creatinine 1.63 MG/DL Random Glucose 198 MG/DL Total Protein 8.4 GM/DL Albumin 3.8 GM/DL Calcium Level 8.8 MG/DL Alkaline Phosphatase 85 U/L Aspartate Amino Transf (AST/SGOT) 48 U/L Alanine Aminotransferase (ALT/SGPT) 59 U/L Total Bilirubin 0.3 MG/DL Sodium Level 137 MEQ/L Potassium Level 3.4 MEQ/L Chloride Level 101 MEQ/L Carbon Dioxide Level 21.9 MEQ/L Anion Gap 14 MEQ/L Estimat Glomerular Filtration Rate 49 ML/MIN Total Creatine Kinase 276 U/L Acetaminophen Level LESS THAN 2.0 MCG/ML Ethyl Alcohol Level LESS THAN 3 MG/DL [facility] Supervised Visit with VERONICA: No Narrative Course Dr. Verduzco has evaluated the patient, lifted Brock act and cleared the patient for discharge. Patient contracts safety. Denies suicidal or homicidal ideations. Patient will be provided community resource packet to [facility] for follow-up. Has friends and family for support. Patient is medically cleared for discharge. Diagnosis Primary Impression: Suicidal behavior Qualified Codes: T14.91XA - Suicide attempt, initial encounter Additional Impression: Substance abuse Referrals: [facility] (Out patient) [facility] Primary Care Physician Psychiatrist Nato NAVARRO [facility] Patient Instructions: General Instructions, Polysubstance Abuse (ED), Suicide Prevention for Adults (ED) Additional Instruction: Contract safety to your self and others Stop using drugs Follow-up with psychiatry Follow-up with primary care provider Follow-up with Mehran Thomas Return to the emergency department immediately with worsening of symptoms Med/Other Pt SpecificInfo: No Change to Meds, No Meds Exist/No RX given Disposition: 01 DISCHARGE HOME Condition: Stable Frida Beltran Mar 10, 2017 10:23
--- NOTE | 2017-03-10 16:38 | HHI.PYPN ---
Subjective Remarks Patient is a 36-year-old man, single, domiciled, employed, with psychiatric history of polysubstance dependence, no significant medical history,who presents as a Brock act by police with report of initial unresponsiveness when they arrived on scene for a potential overdose call. Shortly after they arrived patient was acting erratic and went behind a cabinet with a small bag of white stuff per the prec[place] police sergeant. They brought him here for medical clearance. The patient is initially uncooperative and states he didn't do anything and doesn't use dope. History is significantly limited on initial evaluation. On psychiatric evaluation today patient reports good mood, he denies depression, he denies anxiety, denies psychosis. Patient says that he has been using multiple drugs by choice. He denies suicidal or homicidal ideation, he denies visual and auditory hallucinations. Results Vitals/IOs Vital Signs Date Time Temp Pulse Resp B/P (MAP) Pulse Ox O2 Delivery O2 Flow Rate FiO2 03/10/17 10:54 03/10/17 10:00 69 16 98 03/09/17 18:00 97.7 Room Air Assessment & Plan Assessment & Plan Estimated LOS: days Poncho Marrufo MD Mar 10, 2017 16:38
== END 2017-03-10 10:54 | disposition home or self-care (01) ==
LOC: NEPC 20:32 → NEPJ 03-10 10:54
DX: T14.91XA Suicide attempt, initial encounter (principal); R00.0 Tachycardia, unspecified; F17.200 Nicotine dependence, unspecified, uncomplicated; X58.XXXA Exposure to other specified factors, initial encounter
CPT/HCPCS: 71010; 74000; 74177; 80053; 80307; 82550; 85025; 93005; 96360; 99285; J7030; Q9967